=== PATIENT | male | born 1960 | race Caucasian/White ===

== ENCOUNTER 2017-12-19 10:31 | Observation (INO) | payer OTHER, SELFPAY ==
[2017-12-19] VITALS (13 sets, daily range): BP systolic 99–148; BP diastolic 53–104; PULSE 67–92; RESP 14–18; TEMP 36.6–37; O2SAT 93–98; BMI 27.5; BMI 27.0
--- NOTE | 2017-12-19 10:46 | RAD_ITS ---
STUDY: X-RAY CHEST REASON FOR EXAM: Male, 56 years old. Chest pain and pressure TECHNIQUE: Single view of the chest was obtained COMPARISON: November 12, 2016 FINDINGS: No lung consolidation, pleural effusion or pneumothorax. Cardiac size is within normal limits. Osseous structures demonstrate no acute abnormalities. RAD/Chest 1 View (Portable) IMPRESSION: No evidence for focal airspace disease Electronically Signed: Joe Encinas, at 11:17 EST Tel , Service support ,
--- NOTE | 2017-12-19 10:46 | EKG12_ITS ---
Test Reason : CP Blood Pressure : / mmHG Vent. Rate : 081 BPM Atrial Rate : 081 BPM P-R Int : 142 ms QRS Dur : 082 ms QT Int : 364 ms P-R-T Axes : 080 -57 076 degrees QTc Int : 422 ms Normal sinus rhythm Left axis deviation Low voltage QRS (limb leads) Poor R wave progression Abnormal ECG Confirmed by JAZMYN HOYOS, FERNANDO ([id number]), society editor ANGELA BAUMAN ([id number]) on 12/23/2017 2:37:35 PM Referred By: KAREEM Confirmed By:FERNANDO ELDRIDGE MD
--- NOTE | 2017-12-19 11:06 | ED.VISSUMM ---
- ER Visit Summary Date of Service: 12/19/17 Chief Complaint: Chest pain History of Present Illness: The patient is a 56 M with chest pressure intermittently at rest since yesterday, worse last night, especially with lying down, no worse with exertion. Nonpleuritic. It is substernal pressure in the inferior chest. Occasional left arm discomfort. No neck/jaw/back pain. No symptoms of dysrhythmia or lightheadedness although he has felt vertiginous off and on for the past 3 or 4 weeks since he has had an upper respiratory infection, treated with several different antibiotics from urgent care. States he had a chest x-ray a week ago that was negative for pneumonia. He has 2 cardiac stents in the same coronary vessel that were placed a couple years ago. No DVT or PE risk factors or history. He is on aspirin and Plavix and has been compliant. Non-smoker. No cocaine. Self-described anxious. Physical Examination: Mildly hypertensive otherwise vitals are unremarkable. A little anxious but in no acute distress. Chest nontender, lungs clear, heart regular with no murmur or tachycardia. Equal bilateral 2+/4 radial pulses bilaterally. No JVD. Abdomen nontender soft. No calf tenderness or pedal edema. Test Results: EKG shows no acute injury pattern but shows a left axis deviation that is new compared with his old one one year prior, which was done after his stents. Chest x-ray unremarkable. Labs unremarkable and negative troponin. Emergency Department Course and Treatment: Patient was initially given a GI cocktail which did not help his discomfort at all. He was then given a nitroglycerin tablet, this did not help either but give him a headache. He was then given Tylenol and after I discussed with cardiology who recommended admission for further evaluation and treatment, he was given subcutaneous Lovenox for what is very possibly unstable angina, and Tylenol, along with nitroglycerin paste. Discussed with Dr. Jensen for admission. Treatment Plan: Admit PCU Disposition: Admit Impression: Unstable angina History coronary artery disease with prior PCI This note was generated with Singspiel dictation software. It may contain incorrect words, spelling, and punctuation that were not noted in review of the chart prior to signing ED Disposition - Plan for ED Patient: Disposition: Acute Care Hospital [facility] Chief Complaint: Chest Pain Referrals: Sera Ann MD [Primary Care Provider] -
--- NOTE | 2017-12-19 11:09 | ED.DCSUM_ITS ---
- ER Visit Summary Date of Service: 12/19/17 Chief Complaint: Chest pain History of Present Illness: The patient is a 56 M with chest pressure intermittently at rest since yesterday, worse last night, especially with lying down, no worse with exertion. Nonpleuritic. It is substernal pressure in the inferior chest. Occasional left arm discomfort. No neck/jaw/back pain. No symptoms of dysrhythmia or lightheadedness although he has felt vertiginous off and on for the past 3 or 4 weeks since he has had an upper respiratory infection , treated with several different antibiotics from urgent care. States he had a chest x-ray a week ago that was negative for pneumonia. He has 2 cardiac stents in the same coronary vessel that were placed a couple years ago. No DVT or PE risk factors or history. He is on aspirin and Plavix and has been compliant. Non-smoker. No cocaine. Self-described anxious. Physical Examination: Mildly hypertensive otherwise vitals are unremarkable. A little anxious but in no acute distress. Chest nontender, lungs clear, heart regular with no murmur or tachycardia. Equal bilateral 2+/4 radial pulses bilaterally. No JVD. Abdomen nontender soft. No calf tenderness or pedal edema. Test Results: EKG shows no acute injury pattern but shows a left axis deviation that is new compared with his old one one year prior, which was done after his stents. Chest x-ray unremarkable. Labs unremarkable and negative troponin. Emergency Department Course and Treatment: Patient was initially given a GI cocktail which did not help his discomfort at all. He was then given a nitroglycerin tablet, this did not help either but give him a headache. He was then given Tylenol and after I discussed with cardiology who recommended admission for further evaluation and treatment, he was given subcutaneous Lovenox for what is very possibly unstable angina, and Tylenol, along with nitroglycerin paste. Discussed with Dr. Jensen for admission. Treatment Plan: Admit PCU Disposition: Admit Impression: Unstable angina History coronary artery disease with prior PCI This note was generated with Jetaport dictation software. It may contain incorrect words, spelling, and punctuation that were not noted in review of the chart prior to signing ED Disposition - Plan for ED Patient: Disposition: Acute Care Hospital [facility] Chief Complaint: Chest Pain Referrals: Sera Ann MD [Primary Care Provider] -
[2017-12-19 11:12] LABS: Absolute Lymphocyte Count 1.18 X10^3/ul (0.83-4.51); Absolute Neutrophil Count 5.3 X10^3/uL (2.0-7.7); Basophil# 0.03 X10^3/uL; Basophil% 0.4 % (0-1); Eosinophil# 0.05 X10^3/uL; Eosinophils% 0.7 % (0-5); Hematocrit 49.2 % (40-54); Hemoglobin 17.2 g/dl (13.0-16.5); Lymphocyte # 1.18 X10^3/ul (4.0); Lymphocyte % 16.6 % (19-41); Mean Corpuscular Hgb 29.5 pg (27.0-32.0); Mean Corpuscular Volume 84.2 fL (80-94); Mean Platelet Vol. 11.1 fl (6.2-12.0); Monocyte# 0.58 X10^3/uL; Monocyte% 8.2 % (0-10); Neutrophil # 5.26 X10^3/uL (2.7-7.7); Platelet Count 242 K/mm3 (150-450); RBC Distribution Width CV 13.2 % (11.6-14.6); RBC Distribution Width SD 40.3 fl (35.1-43.9); Red Blood Count 5.84 M/mm3 (4.6-6.2); White Blood Count 7.1 K/mm3 (4.4-11.0)
[2017-12-19 11:14] LABS: POSITIVE COUNT NO; POSITIVE DIFFERENTIAL NO; POSITIVE MORPHOLOGY NO
[2017-12-19 11:18] LABS: Anion Gap 8 (5-15); BUN 10 mg/dL (7-18); BUN/Creat Ratio 9.9 RATIO (10-20); Chloride 101 mmol/L (98-107); Creatinine, Serum 1.01 mg/dL (0.70-1.30); EST Glomerular Filtration Rate 81 mL/min (>60); Est Glom Filt Rate - Afr Amer 98 mL/min (>60); Estimated Creatinine Clearance 83.32 ml/min; Glucose 160 mg/dL (74-106); Sodium Level 137 mmol/L (136-145)
[2017-12-19] MEDS: Aspirin 81 MG TAB.CHEW PO (11:20)
[2017-12-19] MEDS: Acetaminophen 500 MG Tablet 1000 MG PO (13:14)
[2017-12-19] MEDS: Enoxaparin 100 MG/ML Syringe 90 MG SC ×2 (13:15→22:47)
[2017-12-19] MEDS: Nitroglycerin Oint 1 INCH PACKET TRANSDERM. (13:15)
--- NOTE | 2017-12-19 14:23 | PCM.HP.STD ---
Problem List (1) Unstable angina Status: Acute (2) Status post insertion of drug-eluting stent into left anterior descending artery for coronary artery disease Status: Chronic (3) Coronary artery disease Status: Chronic (4) Prediabetes Status: Chronic (5) Hypertension Status: Chronic (6) Dyslipidemia Status: Chronic History of Present Illness Date of Admission: 12/19/17 Chief Complaint: Chest pain since yesterday The patient is a 56 year old M with history of coronary artery status post 2 stents in LAD around in [facility] by Dr. Nagel came to ER with midsternal chest pain since yesterday. Patient described chest pain started at rest, constant but with waxing and waning pressure-like with mild dizziness and mild shortness of breath. Patient went to sleep yesterday and woke up in the morning again her chest pain. Patient further said he has mild dyspnea on exertion on climbing a stair for last 3-4 months. Patient has mild bronchitis symptoms with cough about 3-4 weeks ago and took Z-Willy and doxycycline the cough has almost resolved for last 4 days. In ER, EKG was done which shows left axis deviation, normal sinus rhythm at 81 bpm which is new finding as compared to last EKG on November 2016 which showed normal sinus rhythm with normal axis. First troponin is negative. Chest x-ray reported no focal airspace disease. Insurance Account Executive Dr. Bae notified by ER physician Dr. Coleman only. First troponin negative. He also got 1 dose of Lovenox 1 mg/kg body weight. He is already on aspirin Plavix and a statin. [] Past Medical History Past Medical History (Chronic Problems): Chronic Problems Status post insertion of drug-eluting stent into left anterior descending artery for coronary artery disease (Chronic) Coronary artery disease (Chronic) Prediabetes (Chronic) Hypertension (Chronic) Dyslipidemia (Chronic) Allergies amoxicillin [Amoxicillin] Allergy (Verified 12/19/17 10:32) Hives tetracycline [Tetracycline] Allergy (Verified 12/19/17 10:32) Unknown Home Medications: Ambulatory Orders Medication Instructions Recorded Carvedilol [Coreg] 3.125 mg PO BID 11/15/13 Nitroglycerin [Nitrostat] 0.4 mg SUBLINGUAL Q5M PRN 11/15/13 Omeprazole [Prilosec] 20 mg PO DAILY 11/15/13 Aspirin [Aspirin, Baby] 81 mg PO DAILY@0800 #0 tab.chew 12/13/14 Atorvastatin Calcium [Lipitor] 80 mg PO QHS #0 tablet 12/13/14 Clopidogrel Bisulfate [Plavix] 75 mg PO DAILY #0 tablet 12/13/14 Multivitamin [Daily Multiple 1 each PO DAILY 12/19/17 Vitamin] Smoking Status: Never smoker - *Family History Paternal History Items: No pertinent history Review of Systems Constitutional: Denies: Chills, Fever, Weight Change HEENT: Denies: Head Aches, Sinus Congestion, Sinus Drainage Cardiovascular: Reports: Chest Pain. Denies: Palpitations Respiratory: Reports: Shortness of breath upon exertion. Denies: Cough, Shortness of breath at rest, Sputum production Gastrointestinal: Denies: Abdominal Pain, Nausea, Vomiting Genitourinary: Denies: Dysuria Musculoskeletal: Denies: Joint Pain, Joint Tenderness Skin: Denies: Rash, Wounds Neurological: Denies: Numbness, Tingling, Focal weakness Psychiatric: Denies: Anxiety, Depression, Homicidal Ideations, Suicidal Ideations Hematologic/ Lymphatic: Denies: Easy Bruising, Easy Bleeding VTE Information - Inpt Only VTE Present on Admission: No VTE Mechan Device Prophylaxis: SCD's VTE Pharm Prophylaxis ordered?: Yes Patient Problems: Active and Suspected Problems Unstable angina (Acute) - Physical Exam General: Alert, Oriented x3, Cooperative HEENT: Atraumatic, PERRLA, EOMI, Normocephalic Neck: Supple, No JVD, Negative Carotid Bruits Lungs: Clear to auscultation, Normal air movement, No rhonchi, No wheeze, No rales Cardiovascular: Regular rate, Regular Rhythm, Normal S1, Normal S2, No murmurs Abdomen: Bowel Sounds Present, Soft, Non Tender, Non-Distended Extremities: No edema, Capillary Refill Less than 3 Seconds Skin: No rashes, No breakdown Musculoskeletal: No Tenderness to Palpation of Joints or Extremities, Arthritic Changes Neurological: Cranial nerves II-XII grossly intact, Neuro grossly intact Psych/Mental Status: Normal Affect, Appropriate Vital Signs Temp Pulse Resp BP Pulse Ox 97.8 F 67 16 122/79 H 94 12/19/17 10:33 12/19/17 13:36 12/19/17 13:36 12/19/17 13:36 12/19/17 13:36 Oxygen Delivery Method Room Air Assessment/Plan Active and Suspected Problems Unstable angina (Acute) The patient is a 56 year old M with history of coronary artery status post 2 stents in LAD around in [facility] by Dr. Nagel came to ER with midsternal chest pain since yesterday. Patient described chest pain started at rest, constant but with waxing and waning pressure-like with mild dizziness and mild shortness of breath. Patient went to sleep yesterday and woke up in the morning again her chest pain. Patient further said he has mild dyspnea on exertion on climbing a stair for last 3-4 months. Patient has mild bronchitis symptoms with cough about 3-4 weeks ago and took Z-Willy and doxycycline the cough has almost resolved for last 4 days. In ER, EKG was done which shows left axis deviation, normal sinus rhythm at 81 bpm which is new finding as compared to last EKG on November 2016 which showed normal sinus rhythm with normal axis. First troponin is negative. Chest x-ray reported no focal airspace disease. Insurance Account Executive Dr. Bae notified by ER physician Dr. Coleman only. First troponin negative. He also got 1 dose of Lovenox 1 mg/kg body weight. He is already on aspirin Plavix and a statin. 1. Atypical chest pain most likely unstable angina with history of coronary arteries 2 stents, but possibility of pleuritis in light of recent subacute bronchitis: The patient is being admitted on PCU floor. On ACS protocol with serial cardiac enzymes, aspirin, Plavix Lovenox 1 mg/kg body weight, beta-noman, MARTI inhibitor and statin. Patient started on Isordil. Patient had cardiac cath in October [address] parker and was reported as normal angiographic findings along with previous sustained patent with preserved EF 60%. There is no significant change from the previous cardiac cath of December 2014. Discussed with Dr. Bae. 2. The artery status post 2 stents in LAD: 3. Prediabetes: Patient oral hypoglycemic nasal movement states he has borderline diabetes but not on oral hypoglycemic medication. A1c ordered for tomorrow. On 1800 ADA diet. 4. Hypertension: Blood pressure is reasonably controlled. 5. Dyslipidemia: On atorvastatin DVT prophylaxis: On Lovenox 1 mg/KG body weight. Clinical Impression(s) from Imaging Studies Chest X-Ray 12/19/17 10:46 IMPRESSION: No evidence for focal airspace disease Electronically Signed: Joe Encinas, at 11:17 EST Tel , Service support , Laboratory Results 12/19/17 10:43: WBC 7.1, RBC 5.84, Hgb 17.2 H, Hct 49.2, MCV 84.2, MCH 29.5, MCHC 35.0, RDW 13.2, RDW Differential 40.3, Plt Count 242, MPV 11.1, Immature Gran % (Auto) 0.100, Neut % (Auto) 74.0 H, Lymph % (Auto) 16.6 L, [place] % (Auto) 8.2, Eos % (Auto) 0.7, Baso % (Auto) 0.4, Absolute Neuts (auto) 5.3, Absolute Lymphs (auto) 1.18, Total Counted Not Reportable 12/19/17 10:43: Sodium 137, Potassium 4.0, Chloride 101, Carbon Dioxide 28.0, Anion Gap 8, BUN 10, Creatinine 1.01, Estim Creat Clear Calc 83.32, Est GFR (MDRD) Af Amer 98, Est GFR (MDRD) Non-Af 81, BUN/Creatinine Ratio 9.9 L, Glucose 160 H, Calcium 9.0, Troponin I < 0.02 Code Visit Inpatient E&M: 34689 Init Hosp L3
--- NOTE | 2017-12-19 14:31 | HP.PCM_ITS ---
Problem List (1) Unstable angina Status: Acute (2) Status post insertion of drug-eluting stent into left anterior descending artery for coronary artery disease Status: Chronic (3) Coronary artery disease Status: Chronic (4) Prediabetes Status: Chronic (5) Hypertension Status: Chronic (6) Dyslipidemia Status: Chronic History of Present Illness Date of Admission: 12/19/17 Chief Complaint: Chest pain since yesterday The patient is a 56 year old M with history of coronary artery status post 2 stents in LAD around in [facility] by Dr. Nagel came to ER with midsternal chest pain since yesterday. Patient described chest pain started at rest, constant but with waxing and waning pressure-like with mild dizziness and mild shortness of breath. Patient went to sleep yesterday and woke up in the morning again her chest pain. Patient further said he has mild dyspnea on exertion on climbing a stair for last 3-4 months. Patient has mild bronchitis symptoms with cough about 3-4 weeks ago and took Z- Willy and doxycycline the cough has almost resolved for last 4 days. In ER, EKG was done which shows left axis deviation, normal sinus rhythm at 81 bpm which is new finding as compared to last EKG on November 2016 which showed normal sinus rhythm with normal axis. First troponin is negative. Chest x-ray reported no focal airspace disease. Manager Area Dr. Bae notified by ER physician Dr. Coleman only. First troponin negative. He also got 1 dose of Lovenox 1 mg/kg body weight. He is already on aspirin Plavix and a statin. [] Past Medical History Past Medical History (Chronic Problems): Chronic Problems Status post insertion of drug-eluting stent into left anterior descending artery for coronary artery disease (Chronic) Coronary artery disease (Chronic) Prediabetes (Chronic) Hypertension (Chronic) Dyslipidemia (Chronic) Allergies amoxicillin [Amoxicillin] Allergy (Verified 12/19/17 10:32) Hives tetracycline [Tetracycline] Allergy (Verified 12/19/17 10:32) Unknown Home Medications: Ambulatory Orders Medication Instructions Recorded Carvedilol [Coreg] 3.125 mg PO BID 11/15/13 Nitroglycerin [Nitrostat] 0.4 mg SUBLINGUAL Q5M PRN 11/15/13 Omeprazole [Prilosec] 20 mg PO DAILY 11/15/13 Aspirin [Aspirin, Baby] 81 mg PO DAILY@0800 #0 tab.chew 12/13/14 Atorvastatin Calcium [Lipitor] 80 mg PO QHS #0 tablet 12/13/14 Clopidogrel Bisulfate [Plavix] 75 mg PO DAILY #0 tablet 12/13/14 Multivitamin [Daily Multiple 1 each PO DAILY 12/19/17 Vitamin] Smoking Status: Never smoker - *Family History Paternal History Items: No pertinent history Review of Systems Constitutional: Denies: Chills, Fever, Weight Change HEENT: Denies: Head Aches, Sinus Congestion, Sinus Drainage Cardiovascular: Reports: Chest Pain. Denies: Palpitations Respiratory: Reports: Shortness of breath upon exertion. Denies: Cough, Shortness of breath at rest, Sputum production Gastrointestinal: Denies: Abdominal Pain, Nausea, Vomiting Genitourinary: Denies: Dysuria Musculoskeletal: Denies: Joint Pain, Joint Tenderness Skin: Denies: Rash, Wounds Neurological: Denies: Numbness, Tingling, Focal weakness Psychiatric: Denies: Anxiety, Depression, Homicidal Ideations, Suicidal Ideations Hematologic/ Lymphatic: Denies: Easy Bruising, Easy Bleeding VTE Information - Inpt Only VTE Present on Admission: No VTE Mechan Device Prophylaxis: SCD's VTE Pharm Prophylaxis ordered?: Yes Patient Problems: Active and Suspected Problems Unstable angina (Acute) - Physical Exam General: Alert, Oriented x3, Cooperative HEENT: Atraumatic, PERRLA, EOMI, Normocephalic Neck: Supple, No JVD, Negative Carotid Bruits Lungs: Clear to auscultation, Normal air movement, No rhonchi, No wheeze, No rales Cardiovascular: Regular rate, Regular Rhythm, Normal S1, Normal S2, No murmurs Abdomen: Bowel Sounds Present, Soft, Non Tender, Non-Distended Extremities: No edema, Capillary Refill Less than 3 Seconds Skin: No rashes, No breakdown Musculoskeletal: No Tenderness to Palpation of Joints or Extremities, Arthritic Changes Neurological: Cranial nerves II-XII grossly intact, Neuro grossly intact Psych/Mental Status: Normal Affect, Appropriate Vital Signs Temp Pulse Resp BP Pulse Ox 97.8 F 67 16 122/79 H 94 12/19/17 10:33 12/19/17 13:36 12/19/17 13:36 12/19/17 13:36 12/19/17 13:36 Oxygen Delivery Method Room Air Assessment/Plan Active and Suspected Problems Unstable angina (Acute) The patient is a 56 year old M with history of coronary artery status post 2 stents in LAD around in [facility] by Dr. aNgel came to ER with midsternal chest pain since yesterday. Patient described chest pain started at rest, constant but with waxing and waning pressure-like with mild dizziness and mild shortness of breath. Patient went to sleep yesterday and woke up in the morning again her chest pain. Patient further said he has mild dyspnea on exertion on climbing a stair for last 3-4 months. Patient has mild bronchitis symptoms with cough about 3-4 weeks ago and took Z- Willy and doxycycline the cough has almost resolved for last 4 days. In ER, EKG was done which shows left axis deviation, normal sinus rhythm at 81 bpm which is new finding as compared to last EKG on November 2016 which showed normal sinus rhythm with normal axis. First troponin is negative. Chest x-ray reported no focal airspace disease. Manager Area Dr. Bae notified by ER physician Dr. Coleman only. First troponin negative. He also got 1 dose of Lovenox 1 mg/kg body weight. He is already on aspirin Plavix and a statin. 1. Atypical chest pain most likely unstable angina with history of coronary arteries 2 stents, but possibility of pleuritis in light of recent subacute bronchitis: The patient is being admitted on PCU floor. On ACS protocol with serial cardiac enzymes, aspirin, Plavix Lovenox 1 mg/kg body weight, beta- noman, MARTI inhibitor and statin. Patient started on Isordil. Patient had cardiac cath in October [address] parker and was reported as normal angiographic findings along with previous sustained patent with preserved EF 60% . There is no significant change from the previous cardiac cath of December 2014. Discussed with Dr. Bae. 2. The artery status post 2 stents in LAD: 3. Prediabetes: Patient oral hypoglycemic nasal movement states he has borderline diabetes but not on oral hypoglycemic medication. A1c ordered for tomorrow. On 1800 ADA diet. 4. Hypertension: Blood pressure is reasonably controlled. 5. Dyslipidemia: On atorvastatin DVT prophylaxis: On Lovenox 1 mg/KG body weight. Clinical Impression(s) from Imaging Studies Chest X-Ray 12/19/17 10:46 IMPRESSION: No evidence for focal airspace disease Electronically Signed: Joe Encinas, at 11:17 EST Tel , Service support , Laboratory Results 12/19/17 10:43: WBC 7.1, RBC 5.84, Hgb 17.2 H, Hct 49.2, MCV 84.2, MCH 29.5, MCHC 35.0, RDW 13.2, RDW Differential 40.3, Plt Count 242, MPV 11.1, Immature Gran % (Auto) 0.100, Neut % (Auto) 74.0 H, Lymph % (Auto) 16.6 L, [place] % (Auto) 8.2, Eos % (Auto) 0.7, Baso % (Auto) 0.4, Absolute Neuts (auto) 5.3, Absolute Lymphs (auto) 1.18, Total Counted Not Reportable 12/19/17 10:43: Sodium 137, Potassium 4.0, Chloride 101, Carbon Dioxide 28.0, Anion Gap 8, BUN 10, Creatinine 1.01, Estim Creat Clear Calc 83.32, Est GFR ( MDRD) Af Amer 98, Est GFR (MDRD) Non-Af 81, BUN/Creatinine Ratio 9.9 L, Glucose 160 H, Calcium 9.0, Troponin I < 0.02 Code Visit Inpatient E&M: 52094 Init Hosp L3
[2017-12-19 14:50] LABS: Magnesium 2.2 mg/dL (1.6-2.6)
[2017-12-19] MEDS: Lisinopril 10 MG Tablet PO (15:32)
[2017-12-19] MEDS: Isosorbide DN 10 MG Tablet 5 MG PO (15:32)
[2017-12-19 15:54] LABS: BNP,B-Type NATRIURETIC PEPTIDE 7.3 pg/mL (0-100)
--- NOTE | 2017-12-19 16:17 | EKG12_ITS ---
Test Reason : Blood Pressure : / mmHG Vent. Rate : 080 BPM Atrial Rate : 080 BPM P-R Int : 144 ms QRS Dur : 084 ms QT Int : 376 ms P-R-T Axes : 060 -25 074 degrees QTc Int : 433 ms Normal sinus rhythm Inferior infarct , age undetermined Abnormal ECG When compared with ECG of 19-DEC-2017 10:34, MANUAL COMPARISON REQUIRED, DATA IS UNCONFIRMED Confirmed by PIEDAD LOWRY ([id number]), editorial writer ANGELA BAUMAN ([id number]) on 12/24/2017 3:06:42 PM Referred By: PRATEEK Confirmed By:PIEDAD LOWRY
[2017-12-19] MEDS: Acetaminophen 325 MG Tablet 650 MG PO (19:43)
[2017-12-19] MEDS: 0.9% NaCl Peripheral Flush Adult/Peds IV (21:10)
[2017-12-19] MEDS: Mag Hydrox/Al Hydrox/Simeth 30 ML UDC PO (21:10)
[2017-12-19] MEDS: Atorvastatin Calcium 80 MG Tablet PO (21:13)
[2017-12-20 03:00] VITALS: PULSE 64
[2017-12-20 04:45] VITALS: BP 103/64; PULSE 67; RESP 16; TEMP 36.7; O2SAT 95
[2017-12-20] MEDS: Acetaminophen 325 MG Tablet 650 MG PO (04:46)
[2017-12-20 06:54] LABS: Cholesterol 88 mg/dL (200); High Density Lipoprotein 50 mg/dL; Thyroid Stim Hormone (TSH) 0.16 uIU/mL (0.358-3.74); Triglycerides 88 mg/dL; Very Low Density Lipoprotein 18 mg/dL (5-40)
[2017-12-20 07:02] VITALS: PULSE 77
[2017-12-20 07:30] LABS: Hemoglobin A1c 5.9 % (4.2-6.3)
[2017-12-20 08:55] LABS: T4 Free Direct 1.21 ng/dL (0.76-1.46)
[2017-12-20] MEDS: Pantoprazole Sodium 20 MG Tablet PO (09:06)
[2017-12-20] MEDS: Aspirin 81 MG TAB.CHEW PO (09:06)
[2017-12-20] MEDS: Clopidogrel Bisulfate 75 MG Tablet PO (09:06)
[2017-12-20] MEDS: Multivitamins,Therapeutic Tablet 1 TABLET PO (09:06)
[2017-12-20] MEDS: Carvedilol 3.125 MG TABLET PO (09:07)
[2017-12-20] MEDS: 0.9% NaCl Peripheral Flush Adult/Peds IV (09:11)
[2017-12-20 09:15] VITALS: BP 128/77; PULSE 74; RESP 16; TEMP 36.6; O2SAT 98
[2017-12-20 10:46] VITALS: PULSE 83
--- NOTE | 2017-12-20 11:43 | PCM.DC.SUM ---
Discharge Date and Diagnosis - Problem List Patient Problems: Active and Suspected Problems Unstable angina (Acute) Date of Admission: 12/19/17 - Primary Discharge Diagnosis Active and Suspected Problems Unstable angina (Acute) - Secondary Discharge Diagnosis Chronic Problems Status post insertion of drug-eluting stent into left anterior descending artery for coronary artery disease (Chronic) Coronary artery disease (Chronic) Prediabetes (Chronic) Hypertension (Chronic) Dyslipidemia (Chronic) Hospital Course and Treatment Summary of Care Provided: The patient is a 56 year old M [] Home Medications: Medications to take at Discharge Carvedilol [Coreg] 3.125 mg PO BID 11/15/13 Nitroglycerin [Nitrostat] 0.4 mg SUBLINGUAL Q5M PRN 11/15/13 Omeprazole [Prilosec] 20 mg PO DAILY 11/15/13 Aspirin [Aspirin, Baby] 81 mg PO DAILY@0800 #0 tab.chew 12/13/14 Atorvastatin Calcium [Lipitor] 80 mg PO QHS #0 tablet 12/13/14 Clopidogrel Bisulfate [Plavix] 75 mg PO DAILY #0 tablet 12/13/14 Multivitamin [Daily Multiple Vitamin] 1 each PO DAILY 12/19/17 Isosorbide Mononitrate [Isosorbide Mononitrate ER] 30 mg PO DAILY #30 tab.er.24h 12/20/17 Lisinopril [Prinivil] 5 mg PO DAILY #30 tablet 12/20/17 Following Prescrptions Were Given to Patient: Isosorbide Mononitrate [Isosorbide Mononitrate ER] 30 mg PO DAILY #30 tab.er.24h Lisinopril [Prinivil] 5 mg PO DAILY #30 tablet Primary Care Physician: Sera Ann MD [Primary Care Provider] -
--- NOTE | 2017-12-20 11:46 | DCINST_ITS ---
- Discharge Diagnoses Current Active Problems: Current Active and Chronic Problems Unstable angina (Acute) Status post insertion of drug-eluting stent into left anterior descending artery for coronary artery disease (Chronic) Coronary artery disease (Chronic) Prediabetes (Chronic) Hypertension (Chronic) Dyslipidemia (Chronic) You will use the following diet at home:: Calorie/Carbohydrate Controlled ( specify 1200, 1400, etc) - 1800 ADA diet, Cardiac Discharge Activity: May not drive while taking narcotic pain medications. Allergies/Adverse Reactions: Allergies amoxicillin [Amoxicillin] Allergy (Verified 12/19/17 10:32) Hives tetracycline [Tetracycline] Allergy (Verified 12/19/17 10:32) Unknown Medications to take at Discharge Carvedilol [Coreg (Beta Fredy)] 3.125 mg PO BID 11/15/13 Nitroglycerin [Nitrostat] 0.4 mg SUBLINGUAL Q5M PRN 11/15/13 Omeprazole [Prilosec] 20 mg PO DAILY 11/15/13 Aspirin [Aspirin, Baby] 81 mg PO DAILY@0800 #0 tab.chew 12/13/14 Atorvastatin Calcium [Lipitor] 80 mg PO QHS #0 tablet 12/13/14 Clopidogrel Bisulfate [Plavix] 75 mg PO DAILY #0 tablet 12/13/14 Multivitamin [Daily Multiple Vitamin] 1 each PO DAILY 12/19/17 Isosorbide Mononitrate [Isosorbide Mononitrate ER] 30 mg PO DAILY #30 tab.er.24h 12/20/17 The following prescriptions were given: Isosorbide Mononitrate [Isosorbide Mononitrate ER] 30 mg PO DAILY #30 tab.er.24h Primary Care Physician: Sera Ann MD [Primary Care Provider] - Please follow up with your Primary Care Physician in: in 2 weeks Please Follow Up With: Damon Nagel MD When: in 2-3 weeks with outpatient Lexiscan nuclear stres test
--- NOTE | 2017-12-20 11:46 | PCM.DC.SUM ---
Discharge Date and Diagnosis Date of Admission: 12/19/17 Date of Discharge: 12/20/17 - Primary Discharge Diagnosis Active and Suspected Problems Atypical chest pain with history of coronary artery disease s/p 2 stents, but most probably GERD: Acute coronary syndrome ruled out. - Secondary Discharge Diagnosis Chronic Problems Status post insertion of drug-eluting stent into left anterior descending artery for coronary artery disease (Chronic) Coronary artery disease (Chronic) Prediabetes (Chronic) Hypertension (Chronic) Dyslipidemia (Chronic) Hospital Course and Treatment Summary of Care Provided: The patient is a 56 year old M with history of coronary artery status post 2 stents in LAD around in [facility] by Dr. Nagel came to ER with midsternal chest pain for about 2 days prior to arrival in ER. Patient described chest pain started at rest, constant but with waxing and waning pressure-like, worse since on laying down with mild dizziness and mild shortness of breath. Patient went to sleep yesterday and woke up in the morning again her chest pain. Patient further said he has mild dyspnea on exertion on climbing a stair for last 3-4 months. Patient has mild bronchitis symptoms with cough about 3-4 weeks ago and took Z-Willy and doxycycline the cough has almost resolved for last 4 days. In ER, EKG was done which shows left axis deviation, normal sinus rhythm at 81 bpm which is new finding as compared to last EKG on November 2016 which showed normal sinus rhythm with normal axis. First troponin is negative. Chest x-ray reported no focal airspace disease. Conference Planner Dr. Bae notified by ER physician Dr. Coleman only. First troponin negative. He also got 1 dose of Lovenox 1 mg/kg body weight. He is already on aspirin Plavix and a statin. 1. Atypical chest pain with history of coronary arteries 2 stents, but most probably GERD: Acute coronary syndrome ruled out. The patient is being admitted on PCU floor. The patient was started on ACS protocol with serial cardiac enzymes, aspirin, Plavix Lovenox 1 mg/kg body weight, beta-fredy, MARTI inhibitor and statin. Patient started on Isordil. Patient had cardiac cath in October [address] parker and was reported as normal angiographic findings along with previous sustained patent with preserved EF 60%. There is no significant change from the previous cardiac cath of December 2014. Discussed with Dr. Bae. Had serial troponin enzymes negative. EKG does not show significant change. It seems patient most likely has GERD even though seeing his significant cardiac history, he was recommended outpatient Cardiolite nuclear stress test early next week. Patient understands and agrees. 2. Coronary artery status post 2 stents in LAD: As mentioned above 3. Prediabetes: Patient oral hypoglycemic nasal movement states he has borderline diabetes but not on oral hypoglycemic medication. A1c 5.9 history of prediabetes. On 1800 ADA diet. 4. Hypertension: Blood pressure is reasonably controlled. 5. Dyslipidemia: On atorvastatin DVT prophylaxis: On Lovenox 1 mg/KG body weight. Discharge medication reconciliation done. Follow-up instructions completed. Patient was given a prescription for isosorbide mononitrate 30 mg daily. Rest of the medications continued patient was advised to follow-up his basic acoustic analyst Dr. Parker. Discharge plan discussed with the patient and his and they affirmed understanding. As mentioned above, recommended outpatient Cardiolite nuclear stress test. Discharge Activity: May not drive while taking narcotic pain medications. Home Medications: Medications to take at Discharge Carvedilol [Coreg (Beta Fredy)] 3.125 mg PO BID 11/15/13 Nitroglycerin [Nitrostat] 0.4 mg SUBLINGUAL Q5M PRN 11/15/13 Omeprazole [Prilosec] 20 mg PO DAILY 11/15/13 Aspirin [Aspirin, Baby] 81 mg PO DAILY@0800 #0 tab.chew 12/13/14 Atorvastatin Calcium [Lipitor] 80 mg PO QHS #0 tablet 12/13/14 Clopidogrel Bisulfate [Plavix] 75 mg PO DAILY #0 tablet 12/13/14 Multivitamin [Daily Multiple Vitamin] 1 each PO DAILY 12/19/17 Isosorbide Mononitrate [Isosorbide Mononitrate ER] 30 mg PO DAILY #30 tab.er.24h 12/20/17 Following Prescrptions Were Given to Patient: Isosorbide Mononitrate [Isosorbide Mononitrate ER] 30 mg PO DAILY #30 tab.er.24h Primary Care Physician: Sera Ann MD [Primary Care Provider] - Please follow up with your Primary Care Physician in: in 2 weeks Please Follow Up With: Damon Nagel MD When: in 2-3 weeks with outpatient Lexiscan nuclear stres test Meaningful Use Info Meaningful Use Diagnoses (Choose all that apply): None applicable Code Visit OBSV E&M: 63488 Observation care discharge
--- NOTE | 2017-12-20 12:04 | PCM.CONS.C ---
Problem List (1) Chest pain Status: Acute Reason for Consult Date of Consultation: 12/20/17 History of Present Illness: The patient is a 56 year old M with past medical history significant for coronary artery disease status post percutaneous intervention to his left anterior descending artery a few years back. He also has history of hypertension and dyslipidemia. According to the patient, he has had flulike symptoms for couple of weeks. For the last 1 week, he has been having anterior chest pressure/fullness. It is intermittent. He describes it as being worse while he lays down. No exacerbation or precipitation with activity. Accompanied with a bitter taste in mouth. Relieved with Mylanta. Patient distinctly differentiates it from his usual cardiac pain. He denies any associated shortness of breath or diaphoresis. No nausea or vomiting. Had some of the same symptoms last night which was relieved with Mylanta. [] Past Medical History Allergies/Adverse Reactions: Allergies amoxicillin [Amoxicillin] Allergy (Verified 12/19/17 10:32) Hives tetracycline [Tetracycline] Allergy (Verified 12/19/17 10:32) Unknown Home Medications: Ambulatory Orders Medication Instructions Recorded Carvedilol [Coreg (Beta Fredy)] 3.125 mg PO BID 11/15/13 Nitroglycerin [Nitrostat] 0.4 mg SUBLINGUAL Q5M PRN 11/15/13 Omeprazole [Prilosec] 20 mg PO DAILY 11/15/13 Aspirin [Aspirin, Baby] 81 mg PO DAILY@0800 #0 tab.chew 12/13/14 Atorvastatin Calcium [Lipitor] 80 mg PO QHS #0 tablet 12/13/14 Clopidogrel Bisulfate [Plavix] 75 mg PO DAILY #0 tablet 12/13/14 Multivitamin [Daily Multiple 1 each PO DAILY 12/19/17 Vitamin] Isosorbide Mononitrate [Isosorbide 30 mg PO DAILY #30 tab.er.24h 12/20/17 Mononitrate ER] Lisinopril [Prinivil] 5 mg PO DAILY #30 tab 12/20/17 Past Medical History (Chronic Problems): Chronic Problems Status post insertion of drug-eluting stent into left anterior descending artery for coronary artery disease (Chronic) Coronary artery disease (Chronic) Prediabetes (Chronic) Hypertension (Chronic) Dyslipidemia (Chronic) - *Family History Paternal History Items: No pertinent history Smoking Status: Former smoker Review of Systems - Review of Systems General: Reports: Normal Appetite. Denies: Fever, Fatigue, Chills, Anorexia HEENT: Denies: Vision Change, Hearing Changes Cardiovascular: Reports: Chest Pressure Gastrointestinal: Reports: Dyspepsia. Denies: Abdominal Discomfort, Jaundice Muscoloskeletal: Denies: Myalgias Skin: Denies: Jaundice Neurological: Denies: History of TIA, History of CVA Psychiatric: Denies: Depression Endocrine: Denies: Unexplained Weight Loss Hematologic/ Lymphatic: Denies: Easy Brusing, Easy Bleeding Subjectve: Comfortable. No apparent distress. Objective: Vital Signs Temp Pulse Resp BP Pulse Ox 98 F 83 16 128/77 H 98 12/20/17 09:15 12/20/17 10:46 12/20/17 09:15 12/20/17 09:15 12/20/17 09:15 Oxygen Delivery Method Room Air Weight: 85.5 kg Body Mass Index (BMI) 27.0 Intake and Output for Last 24 Hours 12/18/17 12/19/17 12/20/17 23:59 23:59 23:59 Intake Total 700 / 700 1200 / 1200 Balance 700 / 700 1200 / 1200 General: Healthy Appearing, Awake, Alert, Oriented x 3, No Acute Distress HEENT: Atraumatic, Normocephalic Oral: Moist Mucosa Neck: Supple Lungs: Clear to auscultation Cardiovascular: Regular Rhythm, Normal S1, Normal S2 Vascular: No Carotid Bruits Abdomen: Bowel Sounds Present, Soft, Non Tender Extremities: No edema Neurological: No Focal Motor or Sensory Deficit Psych/Mental Status: Appropriate 12/19/17 14:55: Tropo EKG shows normal sinus rhythm. Ischemic changes are noted. Tish I < 0.02 12/19/17 18:20: Troponin I < 0.02 12/20/17 00:40: Troponin I < 0.02 12/20/17 05:50: Triglycerides 88, Cholesterol 88, LDL Cholesterol 20, VLDL Cholesterol 18, HDL Cholesterol 50 12/20/17 05:50: Hemoglobin A1c 5.9 Rhythm: Normal sinus rhythm. EKG: Normal sinus rhythm. No ischemic changes are noted. ECHO: Stress Test: Cardiac Cath: PCI: CT Surgery: Holter monitor: EPS: PPM: CXR: Chest CT Scan: Assessment/Plan 1. Chest pain/pressure. Precipitated with lying down. Accompanied with bitter taste in mouth. History of gastroesophageal reflux disease. Patient's symptoms are relieved with Mylanta. Doubt cardiac 2. History of coronary artery disease. Even though the patient's symptoms are atypical and more suggestive of GERD, will recommend checking the stress Cardiolite on the patient. Offered to do that as inpatient. However patient prefers to go home and come back and have the test done as outpatient. She was counseled that if his symptoms recur or are exacerbated, then to seek help. Stands and agrees 3. History of gastroesophageal reflux disease 4. Hypertension 5. Dyslipidemia Will ambulate patient. If he does not have any symptoms, may discharge home. Recommend stress Cardiolite as outpatient
--- NOTE | 2017-12-20 12:08 | NURSING ---
DR SANTIZO IN ROOM STATES OKAY FOR PATIENT TO BE DISCHARGED AND COME BACK OUTPATIENT FOR STRESS TEST. INSTRUCTED PATIENT TO COME BACK IF HAS ANY OTHER SYMPTOMS.
--- NOTE | 2017-12-20 13:05 | NURSING ---
PATIENT AMBULATED IN HALLWAY, DENIES ANY SOB OR CHEST PAIN.
== END 2017-12-20 13:22 | disposition home or self-care (01) ==
LOC: ED 13:21 → PCU 14:09
PROVIDERS: Admitting Provider Internal Medicine; Emergency Provider Emergency Medicine; Family Provider Internal Medicine; PCP Internal Medicine; Visit Provider Internal Medicine
DX: R07.89 Other chest pain (principal); I25.10 Atherosclerotic heart disease of native coronary artery without angina pectoris; E78.5 Hyperlipidemia, unspecified; I10 Essential (primary) hypertension; R73.03 Prediabetes; R42 Dizziness and giddiness; K21.9 Gastro-esophageal reflux disease without esophagitis; R06.02 Shortness of breath; Z95.5 Presence of coronary angioplasty implant and graft; Z79.02 Long term (current) use of antithrombotics/antiplatelets; Z79.899 Other long term (current) drug therapy; Z79.82 Long term (current) use of aspirin; Z87.891 Personal history of nicotine dependence
CPT/HCPCS: 36415; 71045; 80048; 80061; 83036; 83735; 83880; 84439; 84443; 84484; 85025; 93005; 96372; 99218; 99285; A4216; G0378

== ENCOUNTER → 2017-12-29 06:51 | Outpatient (CLI) | payer OTHER, SELFPAY ==
--- NOTE | 2017-12-29 17:31 | STRESSREP ---
Stress Test Report Exercise myocardial perfusion stress test. 57-year-old man with a history of chest pressure. Stress protocol: Resting EKG demonstrates sinus rhythm with a rate of 63 bpm. Resting blood pressure is 122/96 mmHg. The patient exercised according to the regular Rafat protocol for total duration of 10 minutes and 45 seconds completing 1 minute and 45 seconds into stage IV of the Rafat protocol. The maximum heart rate attained was 153 bpm which was 94% of maximum predicted heart rate the maximum workload was 12.7 metabolic equivalents. At rest there were no ST or T-wave changes noted suggest ischemia peak exercise upsloping ST changes only were noted really no meet the criteria for ischemia occasional premature ventricular complexes were noted no clinical angina was noted the test was terminated due to leg fatigue and attainment of target heart rate. The resting blood pressure is 122/96 with a peak blood pressure 168/92 rate pressure product was 21,000. Myocardial perfusion protocol. 11.8 mCi of technetium 99m sestamibi was injected at rest the patient exercised according to the Rafat protocol for 10 minutes and 45 seconds attaining 94% of maximum predicted heart rate. At peak exercise 32.1 mCi of technetium 99m sestamibi was injected. Stress images were obtained stress and rest images were reconstructed and compared in the short axis vertical long and horizontal long axis. Gated images were also obtained Perfusion SPECT analysis: Review of the stress images demonstrate normal uptake of tracer noted in all areas of the myocardium. The resting images similarly demonstrate normal uptake of tracer noted in all areas of the myocardium. No areas of reversibility are noted suggest ischemia and no previous infarct is noted. Gated SPECT analysis. Gated ejection fraction is 63%. Conclusion: Normal exercise myocardial perfusion stress test at high workload. Preserved ejection fraction. Excellent functional aerobic capacity.
== END ==
PROVIDERS: Family Provider Internal Medicine; PCP Internal Medicine; Visit Provider Internal Medicine
DX: R07.2 Precordial pain (principal)
CPT/HCPCS: 78452; 93017; A9500; A4216; J2785

== ENCOUNTER 2018-06-30 11:08 | Emergency (ER) | payer OTHER, SELFPAY ==
[2018-06-30 11:09] VITALS: BP 142/103; PULSE 74; RESP 18; TEMP 37; O2SAT 98; BMI 26.2
--- NOTE | 2018-06-30 11:27 | ED.VISSUMM ---
- ER Visit Summary Date of Service: 06/30/18 Chief Complaint: Chest pain History of Present Illness: The patient is a 57 M CAD, prior HI with 2 cardiac stents and most recent from 2013. Patient is on Plavix. He states he has had constant chest discomfort since last Thursday now 6 days. Denies dyspnea. He has fatigue. Denies melena. He initially thought it may be his reflux is unsure at this time. Denies nausea. Recently has been walking a lot and said that has not been a problem. Physical Examination: Well-appearing middle-age male. Vital signs are stable afebrile. Pulse ox 90% on room air no hypoxia. H EENT exam unremarkable. Neck nontender. Lungs clear to auscultation bilaterally. Heart regular rate and rhythm no murmur. Chest wall nontender. Abdomen soft nontender. Normal bowel sounds no peritoneal signs. Calves nontender without edema or cords. Neurologically is awake alert with no focal motor deficits. Test Results: EKG shows a sinus rhythm rate is 66 with no changes from her prior EKG from December of this year. Portable one view chest x-ray shows no acute abnormality read both by myself and the radiologist. CBC normal. BMP normal. Troponin normal. Patient also states he had a stress test one year ago which was negative. Emergency Department Course and Treatment: Patient will undergo cardiac workup. This is been constant pain for like 6 days. He will also be given a GI cocktail and Protonix. Treatment Plan: Patient was treated with a GI cocktail and Protonix which helped his symptoms. I spoke with both he and his . He is comfortable being discharged home. He will stop the Tagamet and be started on Protonix. I will have him follow-up with Dr. Dallin Eduardo also. At this time I do not think this chest pain was cardiac related. Disposition: Discharge Impression: Acute chest pain secondary to gastroesophageal reflux History of CAD, HI with prior cardiac stents ?2 This note was generated with [employer] dictation software. It may contain incorrect words, spelling, and punctuation that were not noted in review of the chart prior to signing ED Disposition - Plan for ED Patient: Chief Complaint: Chest Pain Referrals: Sera Ann MD [Primary Care Provider] -
[2018-06-30 11:28] VITALS: BP 153/90; PULSE 71; RESP 10; O2SAT 97
--- NOTE | 2018-06-30 11:32 | ED.DCSUM_ITS ---
- ER Visit Summary Date of Service: 06/30/18 Chief Complaint: Chest pain History of Present Illness: The patient is a 57 M CAD, prior CO with 2 cardiac stents and most recent from 2013. Patient is on Plavix. He states he has had constant chest discomfort since last Thursday now 6 days. Denies dyspnea. He has fatigue. Denies melena. He initially thought it may be his reflux is unsure at this time. Denies nausea. Recently has been walking a lot and said that has not been a problem. Physical Examination: Well-appearing middle-age male. Vital signs are stable afebrile. Pulse ox 90% on room air no hypoxia. H EENT exam unremarkable. Neck nontender. Lungs clear to auscultation bilaterally. Heart regular rate and rhythm no murmur. Chest wall nontender. Abdomen soft nontender. Normal bowel sounds no peritoneal signs. Calves nontender without edema or cords. Neurologically is awake alert with no focal motor deficits. Test Results: EKG shows a sinus rhythm rate is 66 with no changes from her prior EKG from December of this year. Portable one view chest x-ray shows no acute abnormality read both by myself and the radiologist. CBC normal. BMP normal. Troponin normal. Patient also states he had a stress test one year ago which was negative. Emergency Department Course and Treatment: Patient will undergo cardiac workup. This is been constant pain for like 6 days. He will also be given a GI cocktail and Protonix. Treatment Plan: Patient was treated with a GI cocktail and Protonix which helped his symptoms. I spoke with both he and his . He is comfortable being discharged home. He will stop the Tagamet and be started on Protonix. I will have him follow-up with Dr. Dallin Eduardo also. At this time I do not think this chest pain was cardiac related. Disposition: Discharge Impression: Acute chest pain secondary to gastroesophageal reflux History of CAD, CO with prior cardiac stents ?2 This note was generated with [employer] dictation software. It may contain incorrect words, spelling, and punctuation that were not noted in review of the chart prior to signing ED Disposition - Plan for ED Patient: Chief Complaint: Chest Pain Referrals: Sera Ann MD [Primary Care Provider] -
[2018-06-30] MEDS: Pantoprazole Sodium 40 MG Tablet PO (11:41)
[2018-06-30] MEDS: Mag Hydrox/Al Hydrox/Simeth 30 ML UDC PO (11:42)
[2018-06-30 11:45] LABS: Absolute Lymphocyte Count 1.51 X10^3/ul (0.83-4.51); Absolute Neutrophil Count 5.6 X10^3/uL (2.0-7.7); Basophil# 0.03 X10^3/uL; Basophil% 0.4 % (0-1); Eosinophil# 0.05 X10^3/uL; Eosinophils% 0.6 % (0-5); Hematocrit 48.4 % (40-54); Hemoglobin 16.2 g/dl (13.0-16.5); Lymphocyte # 1.51 X10^3/ul (4.0); Lymphocyte % 19.2 % (19-41); Mean Corp Hgb Conc 33.5 g/gl (32-36); Mean Corpuscular Hgb 29.4 pg (27.0-32.0); Mean Corpuscular Volume 87.8 fL (80-94); Mean Platelet Vol. 10.8 fl (6.2-12.0); Monocyte# 0.67 X10^3/uL; Monocyte% 8.5 % (0-10); Neutrophil # 5.59 X10^3/uL (2.7-7.7); Neutrophil % 71.3 % (47-70); POSITIVE COUNT NO; POSITIVE DIFFERENTIAL NO; POSITIVE MORPHOLOGY NO; Platelet Count 189 K/mm3 (150-450); RBC Distribution Width CV 13.1 % (11.6-14.6); RBC Distribution Width SD 42.3 fl (35.1-43.9); Red Blood Count 5.51 M/mm3 (4.6-6.2); White Blood Count 7.9 K/mm3 (4.4-11.0)
[2018-06-30 11:48] LABS: Anion Gap 8 (5-15); BUN 11 mg/dL (7-18); BUN/Creat Ratio 11.5 RATIO (10-20); Calcium,Total 9.1 mg/dL (8.5-10.1); Chloride 103 mmol/L (98-107); Creatinine, Serum 0.96 mg/dL (0.70-1.30); EST Glomerular Filtration Rate 86 mL/min (>60); Est Glom Filt Rate - Afr Amer 104 mL/min (>60); Glucose 121 mg/dL (74-106); Potassium 3.9 mmol/L (3.5-5.1); Sodium Level 139 mmol/L (136-145)
--- NOTE | 2018-06-30 14:11 | ED.DEP ---
ED Disposition - Plan for ED Patient: Disposition: Home or Assisted Living Chief Complaint: Chest Pain Instructions: ED GERD Prescriptions: Pantoprazole Sodium [Protonix] 40 mg PO DAILY #30 tab Referrals: Delta Esqueda MD [STAFF PHYSICIAN] - As soon as possible Additional Instructions: Stop your Tagamet and begin the Protonix 40 mg once a day. I do not think this is secondary to your heart today. I believe to be secondary to reflux. However with your cardiac history and your recent fatigue I would like you to follow-up with Dr. Delta Esqueda for further evaluation. Return to ER feeling worse.
[2018-06-30 14:31] VITALS: BP 132/90
== END 2018-06-30 14:32 | disposition home or self-care (01) ==
PROVIDERS: Emergency Provider Emergency Medicine; Family Provider Internal Medicine; PCP Internal Medicine
DX: K21.9 Gastro-esophageal reflux disease without esophagitis (principal); I25.10 Atherosclerotic heart disease of native coronary artery without angina pectoris; I25.2 Old myocardial infarction; Z95.5 Presence of coronary angioplasty implant and graft; Z79.01 Long term (current) use of anticoagulants; Z79.82 Long term (current) use of aspirin; Z79.899 Other long term (current) drug therapy
CPT/HCPCS: 71045; 80048; 84484; 85025; 93005; 99284; A4216

== ENCOUNTER 2018-10-23 05:36 | Inpatient (IN) | payer OTHER, SELFPAY ==
[2018-10-23] VITALS (13 sets, daily range): BP systolic 96–131; BP diastolic 58–92; PULSE 80–140; RESP 14–21; TEMP 36.5–37; O2SAT 95–98; BMI 27.4; BMI 27.1; BMI 85.8
--- NOTE | 2018-10-23 05:46 | RAD_ITS ---
STUDY: X-RAY CHEST REASON FOR EXAM: Male, 57 years old. Increased heart rate. Chest pain TECHNIQUE: 1 view COMPARISON: June 21, 2018 FINDINGS: The lungs are clear and expanded. There is no demonstrated pleural abnormality. Normal size heart. Normal mediastinum and mahesh. Normal visualized pulmonary arteries. Normal visualized aortic arch and descending thoracic aorta. Normal visualized thoracic spine. Normal visualized ribs, clavicles, and shoulders. There is no demonstrated abnormality of the visualized soft tissue structures of the upper abdomen. RAD/Chest 1 View (Portable) IMPRESSION: Normal x-ray examination of the chest. No acute findings in the lungs Electronically Signed: Karthik Patrick MD at 6:41 EST Tel , Service support ,
[2018-10-23] MEDS: Metoprolol Tartrate 5 MG/5 ML Vial IV (05:52)
[2018-10-23] MEDS: Aspirin 81 MG TAB.CHEW 324 MG PO (05:52)
[2018-10-23] MEDS: Enoxaparin 100 MG/ML Syringe 90 MG SC (05:53)
[2018-10-23 06:01] LABS: Absolute Lymphocyte Count 2.65 X10^3/ul (0.83-4.51); Absolute Neutrophil Count 6.3 X10^3/uL (2.0-7.7); Basophil# 0.05 X10^3/uL; Basophil% 0.5 % (0-1); Eosinophil# 0.12 X10^3/uL; Eosinophils% 1.2 % (0-5); Hematocrit 50.5 % (40-54); Hemoglobin 17.8 g/dl (13.0-16.5); Lymphocyte # 2.65 X10^3/ul (4.0); Lymphocyte % 26.2 % (19-41); Mean Corp Hgb Conc 35.2 g/gl (32-36); Mean Corpuscular Hgb 29.6 pg (27.0-32.0); Monocyte# 1.02 X10^3/uL; Monocyte% 10.1 % (0-10); Neutrophil # 6.25 X10^3/uL (2.7-7.7); Neutrophil % 61.9 % (47-70); Platelet Count 237 K/mm3 (150-450); RBC Distribution Width CV 13.3 % (11.6-14.6); RBC Distribution Width SD 40.9 fl (35.1-43.9); Red Blood Count 6.01 M/mm3 (4.6-6.2); White Blood Count 10.1 K/mm3 (4.4-11.0)
[2018-10-23 06:02] LABS: POSITIVE COUNT NO; POSITIVE DIFFERENTIAL NO; POSITIVE MORPHOLOGY NO
--- NOTE | 2018-10-23 06:04 | ED.DCSUM_ITS ---
- ER Visit Summary Date of Service: 10/23/18 Chief Complaint: Chest pressure that is been intermittent over the past 2 days, dizziness, dyspnea and dyspnea on exertion History of Present Illness: The patient is a 57 M who has known coronary disease with 2 stents in his LAD. He also has history of hypertension. He presents because of rapid heartbeat that he is noted over the past 2 days. He does report dyspnea and dyspnea with exertion over the past 2 days. He has had chest tightness that is bilateral. There have been episodes of radiated to his jaw. There was an episode to associate with shortness of breath. He denied diaphoresis. He states he did not have chest pain when he had his 2 prior MIs. He denies fever, chills night sweats. He denies runny nose, congestion postnasal drainage. He denies ringing in his ears or decreased hearing. He denies sore throat. He presently has minimal chest tightness at best. He denies food intolerance. He denies abdominal pain or back pain. He denies leg pain, symptoms of claudication. He denies leg swelling or discoloration. He denies history of PE or DVT. He does take Plavix and aspirin daily. His last dose of aspirin was yesterday morning. He states he has not had as much energy last 2 days and has not exercise like he normally does. Matter of fact, he states he did not walk on the treadmill which is unusual for him not too. Physical Examination: Vital signs are marked for an elevated blood pressure 131/92, heart rate of 119 and respiratory rate of 21. He is not febrile nor is he hypoxic. Head is atraumatic normocephalic. Pupils are equal round reactive. Extraocular muscles are intact. TMs are pearly white with landmarks noted. Nares patent with no drainage. Posterior pharynx without erythema or exudate. Uvula is midline. There is no dysphonia or dysphasia. Trachea is midline. There is no stridor with auscultation of the neck. Heart is irregularly irregular and rapid. No murmur, gallop or rub. Lungs are clear to auscultation. Abdomen is soft nontender. Lower extremity exam reveals no swelling, discoloration, ligament distention, palpable coarseness on the distribution deep venous system. DP and PT pulses are 2+ and palpable. There is no stigmata of peripheral arterial disease. Neuro exam is nonfocal. Test Results: EKG A. fib RVR with minimal ossific changes. The ST segments are unchanged from prior EKG dated June 30, 2018. Single view chest x-ray reveals normal cardiac silhouette and mediastinum. Lung parenchyma is normal. CBC unremarkable. Hemoglobin was 17.8. Basic metabolic panel is unremarkable. Glucose is elevated 122. First troponin 0 0.021. Emergency Department Course and Treatment: IV was established. He was treated with 4 baby aspirin, 5 mg of metoprolol for rate control and 1 mg/kg of Lovenox. Chest x-ray and blood work was obtained to evaluate the cause of his discomfort. Treatment Plan: PCU for further testing and monitoring Disposition: PCU inpatient Impression: 1. New onset A. fib with RVR 2. Chest pain 3. History coronary disease 4. His hypertension This note was generated with [employer] dictation software. It may contain incorrect words, spelling, and punctuation that were not noted in review of the chart prior to signing ED Disposition - Plan for ED Patient: Chief Complaint: Chest Pain Referrals: Sera Ann MD [Primary Care Provider] -
[2018-10-23 06:14] LABS: Anion Gap 8 (5-15); BUN 16 mg/dL (7-18); BUN/Creat Ratio 15.7 RATIO (10-20); Calcium,Total 8.9 mg/dL (8.5-10.1); Chloride 104 mmol/L (98-107); Creatinine, Serum 1.02 mg/dL (0.70-1.30); EST Glomerular Filtration Rate 80 mL/min (>60); Est Glom Filt Rate - Afr Amer 96 mL/min (>60); Estimated Creatinine Clearance 81.51 ml/min; Glucose 122 mg/dL (74-106); Potassium 3.7 mmol/L (3.5-5.1); Sodium Level 142 mmol/L (136-145)
--- NOTE | 2018-10-23 06:32 | HP.PCM_ITS ---
History of Present Illness Date of Admission: 10/23/18 Chief Complaint: palpitations, chest pressure The patient is a 57 year old M with a history of coronary artery disease status post stent x2. He was admitted through the ED on 10/23/2018 with a complaint of palpitations, chest pressure and general feeling of unwellness for the past 2 days. Patient states he just did not feel well and felt like there was something will get noticed that his pulse was very high, though he did not give an exact number. He also had some chest pressure assisted with palpitations and had assisted lightheadedness and dizziness. He complained of fever and chills but denied any cough or shortness of breath, abdominal pain, any diarrhea vomiting. He states that his previous heart attacks in assisted to the placement of stents were very atypical he just felt unwell at that time to so he was worried and decided to come in to be checked out. On arrival in the ED he was found to be in A. fib with RVR with his heart rate been in the 140s and was tachypneic as well. He was given a dose of metoprolol which brought the heart rate down to the 80s but he was still in A. fib. CBC and chemistries were essentially unremarkable. Initial troponin was negative. chest x-ray showed no acute ST changes. EKG showed A. fib with RVR and left axis deviation but no acute ST changes. He is been admitted to be managed for new onset A. fib with RVR and chest pressure to rule out ACS. [] Past Medical History Past Medical History (Chronic Problems): Chronic Problems Status post insertion of drug-eluting stent into left anterior descending artery for coronary artery disease (Chronic) Coronary artery disease (Chronic) Prediabetes (Chronic) Hypertension (Chronic) Dyslipidemia (Chronic) Allergies amoxicillin [Amoxicillin] Allergy (Verified 12/19/17 10:32) Hives tetracycline [Tetracycline] Allergy (Verified 12/19/17 10:32) Unknown Home Medications: Ambulatory Orders Medication Instructions Recorded Carvedilol [Coreg (Beta Fredy)] 3.125 mg PO BID 11/15/13 Nitroglycerin [Nitrostat] 0.4 mg SUBLINGUAL Q5M PRN 11/15/13 Aspirin [Aspirin, Baby] 81 mg PO DAILY@0800 #0 tab.chew 12/13/14 Atorvastatin Calcium [Lipitor] 80 mg PO QHS #0 tablet 12/13/14 Clopidogrel Bisulfate [Plavix] 75 mg PO DAILY #0 tablet 12/13/14 Omeprazole [Prilosec] 20 mg PO DAILY 10/23/18 Surgical History: no surgical history Psychiatric History: No pertinent psych hx Lives: Spouse/ Significant Other Smoking Status: Former smoker Tobacco Use: Non-smoker Alcohol: Occasional Drugs: None - *Family History Paternal History Items: No pertinent history Review of Systems Constitutional: Reports: Chills, Fever, Malaise, Weakness, Fatigue. Denies: A norexia Eyes: Denies: Blurred vision HEENT: Denies: Head Aches, Sinus Congestion, Sinus Drainage Cardiovascular: Reports: Chest Pressure, Palpitations. Denies: Chest Pain, Chest Tightness, Edema, Orthopnea, Paroxysmal Noc. Dyspnea, Syncope Respiratory: Denies: Cough, Shortness of Breath, Shortness of breath at rest, Shortness of breath upon exertion, Sputum production Gastrointestinal: Denies: Abdominal Pain, Nausea, Vomiting Genitourinary: Denies: Dysuria Musculoskeletal: Denies: Joint Pain, Joint Tenderness Skin: Denies: Rash, Wounds Neurological: Denies: Numbness, Tingling, Focal weakness Psychiatric: Denies: Anxiety, Depression, Homicidal Ideations, Suicidal Ideations Hematologic/ Lymphatic: Denies: Easy Bruising, Easy Bleeding VTE Information - Inpt Only VTE Present on Admission: No VTE Pharm Prophylaxis ordered?: Yes - Physical Exam General: Alert, Oriented x3, Cooperative, No apparent distress HEENT: Atraumatic, PERRLA, EOMI, Normocephalic Oral: Moist Mucosa Neck: Supple, No JVD, Negative Carotid Bruits Lungs: Clear to auscultation, Normal air movement, No rhonchi, No wheeze, No rales Cardiovascular: Normal S2, No murmurs, Irregular Rate - and rhythm. Afib, rate controlled Abdomen: Bowel Sounds Present, Soft, Non Tender, Non-Distended, No Hepato- splenomegaly Extremities: No clubbing, No cyanosis, No edema, Capillary Refill Less than 3 Seconds Skin: No rashes, No breakdown Musculoskeletal: No Tenderness to Palpation of Joints or Extremities Lymphatic: No Cervical, Supraclavicular, or Inguinal Adenopathy Neurological: Cranial nerves II-XII grossly intact, Neuro grossly intact, Motor Exam 5/5 strength throughout Psych/Mental Status: Normal Affect, Appropriate, Alert and oriented to time, place, person, mood and affect Vital Signs Temp Pulse Resp BP Pulse Ox 98.6 F 119 H 21 H 131/92 H 98 10/23/18 05:37 10/23/18 05:47 10/23/18 05:47 10/23/18 05:37 10/23/18 05:47 Oxygen Delivery Method Room Air Weight: 191 lb 9.307 oz Body Mass Index (BMI) 27.4 Laboratory Tests Past 24 Hrs 10/23/18 10/23/18 05:40 05:40 WBC 10.1 RBC 6.01 Hgb 17.8 H Hct 50.5 MCV 84.0 MCH 29.6 MCHC 35.2 RDW 13.3 RDW Differential 40.9 Plt Count 237 MPV 11.0 Immature Gran % (Auto) 0.100 Neut % (Auto) 61.9 Lymph % (Auto) 26.2 [place] % (Auto) 10.1 H Eos % (Auto) 1.2 Baso % (Auto) 0.5 Absolute Neuts (auto) 6.3 Absolute Lymphs (auto) 2.65 Total Counted Not Reportable Sodium 142 Potassium 3.7 Chloride 104 Carbon Dioxide 30.0 Anion Gap 8 BUN 16 Creatinine 1.02 Estim Creat Clear Calc 81.51 Est GFR (MDRD) Af Amer 96 Est GFR (MDRD) Non-Af 80 BUN/Creatinine Ratio 15.7 Glucose 122 H Calcium 8.9 Troponin I 0.021 Diagnostic Data Chest X-Ray 10/23/18 05:46 IMPRESSION: Normal x-ray examination of the chest. No acute findings in the lungs Electronically Signed: Karthik Patrick MD at 6:41 EST Tel , Service support , Assessment/Plan All Active Problems Unstable angina (Acute) Chest pain (Acute) 57-year-old male admitted with a complaint of general feeling of unwellness and chest pressure as well as palpitations. 1. New onset Afib with RVR * HR in 140s on arrival in ED; went down to 80s after a dose of IV lopressor * EKG shows no acute ST changes * admit to PCU with telemetry * initial EKG negative * increase dose of carvedilol ot help control Afib * received one dose of therapeutic dose of lovenox in ED * last cath:2014- normal coronary angiographic findings with EF of 60% * stress echo o/a of chest pressure * check TSH * cardiology consult * CHADVASC score-2 (CAD and hypertension) * continue with therapeutic dose of lovenox; will need to be transitioned to oral anticoagulants * 2. Chest pressure to rule out ACS * initial troponin negative; EKG showed no acute ST changes * cycle troponins * on PO aspirin 81mg daily. SL nitroglycerin prn * stress echo if troponins are negative. 3. CAD s/ps tent x 2: last stent was ~ [address] Nagel. on aspiron, statin, plavix and carvedilol 4. Hypertension: controlled. On carvedilol 5. GERD: on PPI DVT prophylaxis:therapeutic lovenox Code Visit Inpatient E&M: 76521 Init Hosp L3
--- NOTE | 2018-10-23 07:40 | STE_ITS ---
Reason For Study: Atrial Fibrillation Stress Results Protocol: Rafat Protocol Maximum Predicted HR: 162 bpm Target HR: 138 bpm % Maximum Predicted HR: 106 % DurationHeart Rate Stage (mm:ss) (bpm) BP Comment Baseline 93 118/80No Chest Pain Rafat Protocol Stage I 3:00 151 126/72No Chest Pain; Mild Dyspnea Rafat Protocol Stage II 3:00 169 134/76No Chest Pain; Mild Dyspnea Rafat Protocol Stage III 2:00 171 146/70No Chest Pain; Mild Dyspnea Recovery 109 122/80No Chest Pain Stress Duration: 8:00 mm:ss Maximum Stress HR: 171 bpm METS: 10 Baseline Echocardiogram Findings The estimated ejection fraction is 65 %. Stress Echo Wall motion Data Resting WM Intermediate WM Stress WM Resting Wall Motion Wall Motion Stress No regional wall motion No regional wall motion abnormalities noted. abnormalities noted. EKG Data Atrial fibrillation with rapid ventricular response. The patient exercised according to the regular Rafat protocol for a total duration of 8:00. The maximum heart rate attained was 196 beats per minute. This was 120% of maximum predicted heart rate. The patient exercised into stage 3 of the Rafat protocol. During stress, there were no ST or T wave changes noted to suggest ischemia. No clinical angina was noted. Interpretation Summary The estimated ejection fraction is 65 %. Normal, adequate, treadmill echocardiogram. Negative for ischemia by EKG and echocardiographic criteria. No anginal symptoms noted. Patient had baseline atrial fibrillation with rapid ventricular response. Rare PVCs and occasional aberrant beats during exercise. Final LVEF is 75%. Appropriate blood pressure response to exercise. Test terminated due to elevated heart rate. No complications. Ordering Physician: Shawanda Gracia Referring Physician: Damon Nagel Performed By: Pauly Wen, RDCS, RVT
--- NOTE | 2018-10-23 07:40 | ECHOD_ITS ---
Reason For Study: AFIB Procedure This was a 2D Doppler, Color Flow transthoracic echocardiogram. Exam performed in department. Left Ventricle Normal size and thickness. The estimated ejection fraction is 65 %. Unable to assess diastolic dysfunction due to arrhythmia. No regional wall motion abnormalities noted. Right Ventricle Normal size and thickness. Normal systolic function. Atria Normal left atrium. Normal right atrium. Normal atrial septum. Mitral Valve The mitral valve is structurally normal. No prolapse or stenosis seen. Tricuspid Valve Normal tricuspid valve. Trivial tricuspid valve insufficiency. Right ventricular systolic pressure estimated to be 38 mmHg. Mild pulmonary hypertension. Aortic Valve Normal aortic valve. Trisinus/trileaflet aortic valve. Pulmonic Valve Normal pulmonic valve. Great Vessels Normal aortic root. Normal arch. Normal inferior vena cava. Inferior vena cava collapse with respiration. Pericardium/Pleural No pericardial effusion. MMode/2D Measurements & Calculations LVIDd: 4.1 cm IVSd: 1.1 cm Ao root diam: 3.4 cm LVIDs: 2.9 cm LVPWd: 1.2 cm RVDd: 3.1 cm FS: 30.8 % LAV(MOD-bp): 28.2 ml EDV(MOD-sp4): 80.3 ml EDV(MOD-sp2): 48.4 ml LAV(MOD-bp) Indexed: 13.8 ml/m2 ESV(MOD-sp4): 26.0 ml EF(MOD-sp2): 64.4 % LAV(MOD-sp2): 27.7 ml EF(MOD-sp4): 67.6 % LAV(MOD-sp4): 27.1 ml SV(MOD-sp4): 54.3 ml SV(MOD-sp2): 31.2 ml LA A4 area: 12.8 cm2 LA dimension(2D): 3.4 cm RA A4 area: 9.9 cm2 Time Measurements MV dec time: 0.21 sec Doppler Measurements & Calculations MV E max sukumar: 62.7 cm/sec Ao V2 max: 74.0 cm/sec LV V1 max: 61.3 cm/sec Ao max P.3 mmHg LV V1 max P.5 mmHg PA V2 max: 98.0 cm/sec TR max sukumar: 252.5 cm/sec TR max P.5 mmHg Interpretation Summary The estimated ejection fraction is 65 %. Unable to assess diastolic dysfunction due to arrhythmia. Trivial tricuspid valve insufficiency. Right ventricular systolic pressure estimated to be 38 mmHg. Mild pulmonary hypertension. Pt appears to be in atrial fibrillation. There is no comparison study available. Ordering Physician: Shawanda Gracia Referring Physician: NORRIS BUENO Performed By: Pauly Wen, LANEY, RVT
[2018-10-23 09:16] LABS: Thyroid Stim Hormone (TSH) 0.79 uIU/mL (0.358-3.74)
--- NOTE | 2018-10-23 10:11 | CON.PCM_ITS ---
Problem List (1) Atrial fibrillation Status: Acute (2) Status post insertion of drug-eluting stent into left anterior descending artery for coronary artery disease Status: Chronic (3) Coronary artery disease Status: Chronic (4) Hypertension Status: Chronic (5) Dyslipidemia Status: Chronic Reason for Consult Date of Consultation: 10/23/18 Reason for Consultation: Coronary artery disease status post LAD stent, hypertension, hyperlipidemia, new onset atrial fibrillation History of Present Illness: The patient is a 57 year old M, patient of Dr. Adam's, previously seen by me in the distant past status post angioplasty and stenting to his LAD several years a go with relook catheterization [place] [address] Adam. At that time his stent was found to be widely patent and he had no high-grade lesions of any other vessels with preserved LV function. Patient has never been known to have atrial fibrillation in the past but does have a history of GERD recently seen by my colleague Dr. Bae for non-atypical chest pain. He underwent a recent stress test in December 2017 which was negative for inducible ischemia. He was treated with PPI therapy. Ever since , the patient has had a bourbon and coke every day or so, as well as excessive amount of caffeine drinking up to 3 cups of coffee per day. He is also been under an enormous amount of stress, and sleeping well. He has never been diagnosed with obstructive sleep apnea but feels he may have it. About 2 days ago patient began feeling jittery and anxious, and noted he had a rapid pulse. Patient had chest burning type symptoms similar to his reflux disease but no recurrent anginal symptoms as he had prior to his LAD stenting. Patient also had cold sweats but no fevers or chills. When this did not improve, and his pulse was quite rapid, he sought medical attention at [facility] last evening. An EKG demonstrated atrial fibrillation with rapid ventricular response. His first 2 troponins were negative, and he underwent a repeat stress test in the form of a treadmill echocardiogram which was negative for inducible ischemia at an excellent workload. Patient was treated with Lovenox, and Coreg therapy. Patient is unsure of exactly when he went into atrial fibrillation, making DC cardioversion somewhat problematic at this time. He is currently resting comfortably. [] Past Medical History Allergies/Adverse Reactions: Allergies amoxicillin [Amoxicillin] Allergy (Verified 12/19/17 10:32) Hives tetracycline [Tetracycline] Allergy (Verified 12/19/17 10:32) Unknown Home Medications: Ambulatory Orders Medication Instructions Recorded Carvedilol [Coreg (Beta Fredy)] 3.125 mg PO BID 11/15/13 Nitroglycerin [Nitrostat] 0.4 mg SUBLINGUAL Q5M PRN 11/15/13 Aspirin [Aspirin, Baby] 81 mg PO DAILY@0800 #0 tab.chew 12/13/14 Atorvastatin Calcium [Lipitor] 80 mg PO QHS #0 tablet 12/13/14 Clopidogrel Bisulfate [Plavix] 75 mg PO DAILY #0 tablet 12/13/14 L.acidoph,Paracasei, B.lactis 1 each PO DAILY 10/23/18 [Probiotic] Omeprazole [Prilosec] 20 mg PO DAILY 10/23/18 Past Medical History (Chronic Problems): Chronic Problems Status post insertion of drug-eluting stent into left anterior descending artery for coronary artery disease (Chronic) Coronary artery disease (Chronic) Prediabetes (Chronic) Hypertension (Chronic) Dyslipidemia (Chronic) Surgical History: no surgical history Psychiatric History: No pertinent psych hx - *Family History Paternal History Items: No pertinent history Lives: Spouse/ Significant Other Smoking Status: Former smoker Tobacco Use: Non-smoker Alcohol: Occasional Drugs: None Review of Systems - Review of Systems General: Denies: Fever, Night Sweats, Fatigue Cardiovascular: Reports: Chest Discomfort at Rest, Palpitations. Denies: Chest Discomfort, Shortness of Breath, Orthopnea, PND, Peripheral Edema, Lightheadedness, Dizziness, Near Syncope, Syncope Respiratory: Denies: Cough, Sputum Production, Hemoptysis Gastrointestinal: Denies: Hematemesis, Hematochezia, Melena Genitourinary: Denies: Dysuria, Hematuria Skin: Denies: Rash Subjectve: Patient resting comfortably, at bedside. No acute distress. Objective: Vital Signs Temp Pulse Resp BP Pulse Ox 98.6 F 95 21 H 131/92 H 98 10/23/18 05:37 10/23/18 07:29 10/23/18 05:47 10/23/18 05:37 10/23/18 05:47 Oxygen Delivery Method Room Air Weight: 189 lb 2.506 oz Body Mass Index (BMI) 27.1 General: Awake, Alert, Oriented x 3 HEENT: PERRL, EOMI, Sclera Non Icteric Neck: Supple, Good ROM, No Lymph Node Enlargement Lungs: Clear to auscultation Cardiovascular: Irregular Rhythm, Normal S1, Normal S2, No Murmurs, No Rubs, No Gallops Vascular: No Carotid Bruits, Normal Femoral Pulses, Normal Radial Pulses, Normal Dorsalis Pedal Pulse, Normal Posterior Tibial Pulses Abdomen: Bowel Sounds Present, Soft, Non Tender, No HSM, No Organomegaly Extremities: No Cyanosis, No Clubbing, No edema Neurological: No Focal Motor or Sensory Deficit 10/23/18 05:40: WBC 10.1, RBC 6.01, Hgb 17.8 H, Hct 50.5, MCV 84.0, MCH 29.6, MCHC 35.2, RDW 13.3, RDW Differential 40.9, Plt Count 237, MPV 11.0, Immature Gran % (Auto) 0.100, Neut % (Auto) 61.9, Lymph % (Auto) 26.2, [place] % (Auto) 10.1 H, Eos % (Auto) 1.2, Baso % (Auto) 0.5, Absolute Neuts (auto) 6.3, Total Counted Not Reportable 10/23/18 05:40: Sodium 142, Potassium 3.7, Chloride 104, Carbon Dioxide 30.0, Anion Gap 8, BUN 16, Creatinine 1.02, Est GFR (MDRD) Af Amer 96, Est GFR (MDRD) Non-Af 80, BUN/Creatinine Ratio 15.7, Glucose 122 H, Calcium 8.9, Troponin I 0.021 10/23/18 08:23: Troponin I 0.017 Rhythm: EKG: EKG showed atrial fibrillation with rapid ventricular response, low voltage in the limb leads, no acute changes. ECHO: Pending. Stress Test: Negative for inducible ischemia. Cardiac Cath: PCI: CT Surgery: Holter monitor: EPS: PPM: CXR: Chest CT Scan: Assessment/Plan 1. Atrial fibrillation: The patient has new onset atrial fibrillation, possibly made worse by excessive caffeine, alcohol, psychosocial stress, and possible undiagnosed obstructive sleep apnea. Patient's troponins were negative x2, and his stress test was negative for inducible ischemia. 2D echo with Doppler is pending at this time. I recommended reinitiation of Coreg 3.125 mg p.o. twice daily and titrating up from there. He will continue Lovenox therapy and be transition to Eliquis 5 mg p.o. twice daily. Do not recommend repeat catheterization at this time. Advised the patient to discontinue all alcohol, tobacco, and caffeinated beverages in order to hopefully revert him back to normal sinus rhythm. If this does not take place in the next few weeks, we will proceed with DC cardioversion after at least 3 weeks time of Eliquis therapy. In addition I recommend an outpatient sleep study as he most likely has obstructive sleep apnea given his signs and symptoms and atrial fibrillation. 2. Coronary artery disease: No exertional anginal symptoms either prior to or subsequent to his atrial fibrillation. Stress echocardiogram this morning is negative for inducible ischemia with no anginal symptoms. No repeat catheterization recommended at this time. 3. Hyperlipidemia: Recommend obtaining a fasting lipid profile. Will make adjustments to his statin based medicines as indicated. His LDL should be less than 70. 4. Thank you very much for the opportunity to participate in the cardiac care of your patient. Consultation time took place between 830 and 9 AM. Code Visit Inpatient E&M: 09726 Init Hosp L2
[2018-10-23] MEDS: Pantoprazole Sodium 20 MG Tablet PO (10:32)
[2018-10-23] MEDS: Clopidogrel Bisulfate 75 MG Tablet PO (10:32)
[2018-10-23] MEDS: Carvedilol 3.125 MG TABLET PO ×2 (11:30→22:13)
[2018-10-23] MEDS: dilTIAZem 25 MG/5 ML Vial 10 MG IV BOLUS (11:49)
--- NOTE | 2018-10-23 13:13 | PCM.PROGNOTE ---
<Lisa Parra - Last Filed: 10/23/18 13:21> Patient Problems: Active and Suspected Problems Atrial fibrillation (Acute) Subjective: Patient seen and examined. Denies chest pain, shortness of breath, palpitations. Complains of anxiety related to family issues involving the holidays. Requesting medication for anxiety at discharge. He feels that his anxiety is the cause of his current atrial fibrillation. - Physical Exam General: Alert, Oriented x3, Cooperative, No apparent distress HEENT: Atraumatic, PERRLA, EOMI, Normocephalic Neck: Supple, No JVD, Negative Carotid Bruits Lungs: Clear to auscultation, Normal air movement Cardiovascular: No murmurs, - - Atrial fibrillation, tachycardic Abdomen: Bowel Sounds Present, Soft, Non Tender, Non-Distended Extremities: No clubbing, No cyanosis, No edema, Capillary Refill Less than 3 Seconds Skin: No rashes, No breakdown Musculoskeletal: No Tenderness to Palpation of Joints or Extremities Neurological: Cranial nerves II-XII grossly intact, Neuro grossly intact Psych/Mental Status: Normal Affect, Appropriate Vital Signs Temp Pulse Resp BP Pulse Ox 98.3 F 140 H 16 109/66 97 10/23/18 10:30 10/23/18 11:48 10/23/18 10:30 10/23/18 11:48 10/23/18 10:30 Oxygen Delivery Method Room Air Weight: 189 lb 2.506 oz Body Mass Index (BMI) 27.1 Intake and Output for Last 24 Hours 10/21/18 10/22/18 10/23/18 23:59 23:59 23:59 Intake Total 600 / 600 Balance 600 / 600 Laboratory Tests Past 24 Hrs 10/23/18 10/23/18 10/23/18 05:40 05:40 05:40 WBC 10.1 RBC 6.01 Hgb 17.8 H Hct 50.5 MCV 84.0 MCH 29.6 MCHC 35.2 RDW 13.3 RDW Differential 40.9 Plt Count 237 MPV 11.0 Immature Gran % (Auto) 0.100 Neut % (Auto) 61.9 Lymph % (Auto) 26.2 [place] % (Auto) 10.1 H Eos % (Auto) 1.2 Baso % (Auto) 0.5 Absolute Neuts (auto) 6.3 Absolute Lymphs (auto) 2.65 Total Counted Not Reportable Sodium 142 Potassium 3.7 Chloride 104 Carbon Dioxide 30.0 Anion Gap 8 BUN 16 Creatinine 1.02 Estim Creat Clear Calc 81.51 Est GFR (MDRD) Af Amer 96 Est GFR (MDRD) Non-Af 80 BUN/Creatinine Ratio 15.7 Glucose 122 H Calcium 8.9 Troponin I 0.021 TSH 0.79 10/23/18 08:23 WBC RBC Hgb Hct MCV MCH MCHC RDW RDW Differential Plt Count MPV Immature Gran % (Auto) Neut % (Auto) Lymph % (Auto) [place] % (Auto) Eos % (Auto) Baso % (Auto) Absolute Neuts (auto) Absolute Lymphs (auto) Total Counted Sodium Potassium Chloride Carbon Dioxide Anion Gap BUN Creatinine Estim Creat Clear Calc Est GFR (MDRD) Af Amer Est GFR (MDRD) Non-Af BUN/Creatinine Ratio Glucose Calcium Troponin I 0.017 TSH Medical Necessity - Tobacco Use Smoking Status: Former smoker Tobacco Use: Non-smoker Assessment/Plan All Active Problems Unstable angina (Acute) Chest pain (Acute) Atrial fibrillation (Acute) 1. New onset atrial fibrillation with RVR-cardiology following. Echocardiogram with EF 65%, RVSP estimated to be 38 mmHg, mild pulmonary hypertension. TSH within normal limits. Stress echo without evidence of ischemia. IV Cardizem x1. Continue carvedilol with titration as necessary. Patient started on Eliquis 5 mg twice daily. Possible cardioversion in 3 weeks if patient does not convert. HR remains tachycardic intermittently. 2. CAD status post stents x2-follows with Dr. Esqueda, [facility] cardiology. EKG without ST-T changes. Troponin negative. Stress echo without evidence of ischemia as noted above. Continue aspirin, statin, Plavix, carvedilol. 3. Hypertension-stable, continue carvedilol. 4. GERD-continue PPI. 5. Anxiety-patient reports he was on benzodiazepines short-term for situational anxiety in the past. Requesting anxiety medication at discharge to get him through the holidays. DVT prophylaxis-Eliquis. This patient was seen by CHIO Da Silva under the supervision of Dr. Zuniga. <Woo Zuniga - Last Filed: 10/23/18 14:34> Subjective: No chest pain. No shortness of breath. - Physical Exam General: Alert, Cooperative, No apparent distress HEENT: Atraumatic, Normocephalic Oral: Moist Mucosa, No Gingival or Mucosal Lesions/ Ulcerations Neck: No Nodes, Thyroid Normal Size and Texture Lungs: Clear to auscultation, Normal air movement, No rhonchi, No wheeze Cardiovascular: No murmurs, - Abdomen: Bowel Sounds Present, Soft, Non Tender, Non-Distended Extremities: No edema, Capillary Refill Less than 3 Seconds Skin: No rashes, No breakdown Psych/Mental Status: Normal Affect, Appropriate Vital Signs Temp Pulse Resp BP Pulse Ox 36.8 C 106 H 16 96/66 96 10/23/18 10:30 10/23/18 13:29 10/23/18 13:29 10/23/18 13:29 10/23/18 13:29 Oxygen Delivery Method Room Air Weight: 85.8 kg Body Mass Index (BMI) 27.1 Intake and Output for Last 24 Hours 10/21/18 10/22/18 10/23/18 23:59 23:59 23:59 Intake Total 600 / 600 Balance 600 / 600 Laboratory Tests Past 24 Hrs 10/23/18 10/23/18 10/23/18 05:40 05:40 05:40 WBC 10.1 RBC 6.01 Hgb 17.8 H Hct 50.5 MCV 84.0 MCH 29.6 MCHC 35.2 RDW 13.3 RDW Differential 40.9 Plt Count 237 MPV 11.0 Immature Gran % (Auto) 0.100 Neut % (Auto) 61.9 Lymph % (Auto) 26.2 [place] % (Auto) 10.1 H Eos % (Auto) 1.2 Baso % (Auto) 0.5 Absolute Neuts (auto) 6.3 Absolute Lymphs (auto) 2.65 Total Counted Not Reportable Sodium 142 Potassium 3.7 Chloride 104 Carbon Dioxide 30.0 Anion Gap 8 BUN 16 Creatinine 1.02 Estim Creat Clear Calc 81.51 Est GFR (MDRD) Af Amer 96 Est GFR (MDRD) Non-Af 80 BUN/Creatinine Ratio 15.7 Glucose 122 H Calcium 8.9 Troponin I 0.021 TSH 0.79 10/23/18 08:23 WBC RBC Hgb Hct MCV MCH MCHC RDW RDW Differential Plt Count MPV Immature Gran % (Auto) Neut % (Auto) Lymph % (Auto) [place] % (Auto) Eos % (Auto) Baso % (Auto) Absolute Neuts (auto) Absolute Lymphs (auto) Total Counted Sodium Potassium Chloride Carbon Dioxide Anion Gap BUN Creatinine Estim Creat Clear Calc Est GFR (MDRD) Af Amer Est GFR (MDRD) Non-Af BUN/Creatinine Ratio Glucose Calcium Troponin I 0.017 TSH Assessment/Plan Patient seen and examined independently. Data reviewed. I agree with the above note by the nurse practitioner. 1. Atrial fibrillation with RVR Rate controlled at this time but did receive a one-time dose of IV Cardizem shortly before my evaluation Continue with carvedilol Anticoagulated with Eliquis Possible cardioversion as outpatient Monitor overnight to ensure stability of his heart rhythm. 2. Chest pain Stress test negative Continue with aspirin, Plavix and statin. Code Visit Inpatient E&M: 38888 Subs Hosp L2
--- NOTE | 2018-10-23 13:21 | PN_ITS ---
<Lisa Parra - Last Filed: 10/23/18 13:21> Patient Problems: Active and Suspected Problems Atrial fibrillation (Acute) Subjective: Patient seen and examined. Denies chest pain, shortness of breath, palpitations. Complains of anxiety related to family issues involving the holidays. Requesting medication for anxiety at discharge. He feels that his anxiety is the cause of his current atrial fibrillation. - Physical Exam General: Alert, Oriented x3, Cooperative, No apparent distress HEENT: Atraumatic, PERRLA, EOMI, Normocephalic Neck: Supple, No JVD, Negative Carotid Bruits Lungs: Clear to auscultation, Normal air movement Cardiovascular: No murmurs, - - Atrial fibrillation, tachycardic Abdomen: Bowel Sounds Present, Soft, Non Tender, Non-Distended Extremities: No clubbing, No cyanosis, No edema, Capillary Refill Less than 3 Seconds Skin: No rashes, No breakdown Musculoskeletal: No Tenderness to Palpation of Joints or Extremities Neurological: Cranial nerves II-XII grossly intact, Neuro grossly intact Psych/Mental Status: Normal Affect, Appropriate Vital Signs Temp Pulse Resp BP Pulse Ox 98.3 F 140 H 16 109/66 97 10/23/18 10:30 10/23/18 11:48 10/23/18 10:30 10/23/18 11:48 10/23/18 10:30 Oxygen Delivery Method Room Air Weight: 189 lb 2.506 oz Body Mass Index (BMI) 27.1 Intake and Output for Last 24 Hours 10/21/18 10/22/18 10/23/18 23:59 23:59 23:59 Intake Total 600 / 600 Balance 600 / 600 Laboratory Tests Past 24 Hrs 10/23/18 10/23/18 10/23/18 05:40 05:40 05:40 WBC 10.1 RBC 6.01 Hgb 17.8 H Hct 50.5 MCV 84.0 MCH 29.6 MCHC 35.2 RDW 13.3 RDW Differential 40.9 Plt Count 237 MPV 11.0 Immature Gran % (Auto) 0.100 Neut % (Auto) 61.9 Lymph % (Auto) 26.2 [place] % (Auto) 10.1 H Eos % (Auto) 1.2 Baso % (Auto) 0.5 Absolute Neuts (auto) 6.3 Absolute Lymphs (auto) 2.65 Total Counted Not Reportable Sodium 142 Potassium 3.7 Chloride 104 Carbon Dioxide 30.0 Anion Gap 8 BUN 16 Creatinine 1.02 Estim Creat Clear Calc 81.51 Est GFR (MDRD) Af Amer 96 Est GFR (MDRD) Non-Af 80 BUN/Creatinine Ratio 15.7 Glucose 122 H Calcium 8.9 Troponin I 0.021 TSH 0.79 10/23/18 08:23 WBC RBC Hgb Hct MCV MCH MCHC RDW RDW Differential Plt Count MPV Immature Gran % (Auto) Neut % (Auto) Lymph % (Auto) [place] % (Auto) Eos % (Auto) Baso % (Auto) Absolute Neuts (auto) Absolute Lymphs (auto) Total Counted Sodium Potassium Chloride Carbon Dioxide Anion Gap BUN Creatinine Estim Creat Clear Calc Est GFR (MDRD) Af Amer Est GFR (MDRD) Non-Af BUN/Creatinine Ratio Glucose Calcium Troponin I 0.017 TSH Medical Necessity - Tobacco Use Smoking Status: Former smoker Tobacco Use: Non-smoker Assessment/Plan All Active Problems Unstable angina (Acute) Chest pain (Acute) Atrial fibrillation (Acute) 1. New onset atrial fibrillation with RVR-cardiology following. Echocardiogram with EF 65%, RVSP estimated to be 38 mmHg, mild pulmonary hypertension. TSH within normal limits. Stress echo without evidence of ischemia. IV Cardizem x1. Continue carvedilol with titration as necessary. Patient started on Eliquis 5 mg twice daily. Possible cardioversion in 3 weeks if patient does not convert. HR remains tachycardic intermittently. 2. CAD status post stents x2-follows with Dr. Esqueda, [facility] cardiology. EKG without ST-T changes. Troponin negative. Stress echo without evidence of ischemia as noted above. Continue aspirin, statin, Plavix, carvedilol. 3. Hypertension-stable, continue carvedilol. 4. GERD-continue PPI. 5. Anxiety-patient reports he was on benzodiazepines short-term for situational anxiety in the past. Requesting anxiety medication at discharge to get him through the holidays. DVT prophylaxis-Eliquis. This patient was seen by CHIO Da Silva under the supervision of Dr. Zuniga. <Woo Zuniga - Last Filed: 10/23/18 14:34> Subjective: No chest pain. No shortness of breath. - Physical Exam General: Alert, Cooperative, No apparent distress HEENT: Atraumatic, Normocephalic Oral: Moist Mucosa, No Gingival or Mucosal Lesions/ Ulcerations Neck: No Nodes, Thyroid Normal Size and Texture Lungs: Clear to auscultation, Normal air movement, No rhonchi, No wheeze Cardiovascular: No murmurs, - Abdomen: Bowel Sounds Present, Soft, Non Tender, Non-Distended Extremities: No edema, Capillary Refill Less than 3 Seconds Skin: No rashes, No breakdown Psych/Mental Status: Normal Affect, Appropriate Vital Signs Temp Pulse Resp BP Pulse Ox 36.8 C 106 H 16 96/66 96 10/23/18 10:30 10/23/18 13:29 10/23/18 13:29 10/23/18 13:29 10/23/18 13:29 Oxygen Delivery Method Room Air Weight: 85.8 kg Body Mass Index (BMI) 27.1 Intake and Output for Last 24 Hours 10/21/18 10/22/18 10/23/18 23:59 23:59 23:59 Intake Total 600 / 600 Balance 600 / 600 Laboratory Tests Past 24 Hrs 10/23/18 10/23/18 10/23/18 05:40 05:40 05:40 WBC 10.1 RBC 6.01 Hgb 17.8 H Hct 50.5 MCV 84.0 MCH 29.6 MCHC 35.2 RDW 13.3 RDW Differential 40.9 Plt Count 237 MPV 11.0 Immature Gran % (Auto) 0.100 Neut % (Auto) 61.9 Lymph % (Auto) 26.2 [place] % (Auto) 10.1 H Eos % (Auto) 1.2 Baso % (Auto) 0.5 Absolute Neuts (auto) 6.3 Absolute Lymphs (auto) 2.65 Total Counted Not Reportable Sodium 142 Potassium 3.7 Chloride 104 Carbon Dioxide 30.0 Anion Gap 8 BUN 16 Creatinine 1.02 Estim Creat Clear Calc 81.51 Est GFR (MDRD) Af Amer 96 Est GFR (MDRD) Non-Af 80 BUN/Creatinine Ratio 15.7 Glucose 122 H Calcium 8.9 Troponin I 0.021 TSH 0.79 10/23/18 08:23 WBC RBC Hgb Hct MCV MCH MCHC RDW RDW Differential Plt Count MPV Immature Gran % (Auto) Neut % (Auto) Lymph % (Auto) [place] % (Auto) Eos % (Auto) Baso % (Auto) Absolute Neuts (auto) Absolute Lymphs (auto) Total Counted Sodium Potassium Chloride Carbon Dioxide Anion Gap BUN Creatinine Estim Creat Clear Calc Est GFR (MDRD) Af Amer Est GFR (MDRD) Non-Af BUN/Creatinine Ratio Glucose Calcium Troponin I 0.017 TSH Assessment/Plan Patient seen and examined independently. Data reviewed. I agree with the above note by the nurse practitioner. 1. Atrial fibrillation with RVR * Rate controlled at this time but did receive a one-time dose of IV Cardizem shortly before my evaluation * Continue with carvedilol * Anticoagulated with Eliquis * Possible cardioversion as outpatient * Monitor overnight to ensure stability of his heart rhythm. 2. Chest pain * Stress test negative * Continue with aspirin, Plavix and statin. Code Visit Inpatient E&M: 61380 Subs Hosp L2
--- NOTE | 2018-10-23 15:13 | CM.UR ---
See patient services technician. Met face to face with patient and his . Independent at home prior to admission. No need anticipated at discharge. Discussed eliquis. Placed co-pay coupon on chart for discharge. D/C plan is home with no needs anticipated. Instructed cm will remain available should any needs arise. verb understanding. Katie Liao RN, CCM.
--- NOTE | 2018-10-23 17:21 | NURSING ---
eliquis dose not given at this time due to pt having lovenox this am aprox 0600. spoke with the pharmacist who recomended that the first dose of eliquis be given tonight at 2200.
[2018-10-23] MEDS: traMADol 50 MG Tablet PO (20:27)
[2018-10-23] MEDS: Atorvastatin Calcium 80 MG Tablet PO (22:13)
[2018-10-23] MEDS: APIXABAN 5 MG TABLET PO (22:13)
[2018-10-23] MEDS: Zolpidem Tartrate 5 MG Tablet PO (22:16)
[2018-10-24] VITALS (8 sets, daily range): BP systolic 102–122; BP diastolic 62–80; PULSE 64–110; RESP 14–18; TEMP 36.4–36.6; O2SAT 95–96
[2018-10-24 07:03] LABS: Absolute Neutrophil Count 4.6 X10^3/uL (2.0-7.7); Basophil# 0.03 X10^3/uL; Basophil% 0.4 % (0-1); Eosinophil# 0.12 X10^3/uL; Eosinophils% 1.5 % (0-5); Hematocrit 49.5 % (40-54); Hemoglobin 16.9 g/dl (13.0-16.5); Lymphocyte % 29.8 % (19-41); Mean Corp Hgb Conc 34.1 g/gl (32-36); Mean Corpuscular Hgb 29.3 pg (27.0-32.0); Mean Corpuscular Volume 85.8 fL (80-94); Mean Platelet Vol. 10.5 fl (6.2-12.0); Monocyte# 0.85 X10^3/uL; Monocyte% 10.6 % (0-10); Neutrophil # 4.64 X10^3/uL (2.7-7.7); Neutrophil % 57.6 % (47-70); Platelet Count 170 K/mm3 (150-450); RBC Distribution Width CV 13.3 % (11.6-14.6); RBC Distribution Width SD 41.3 fl (35.1-43.9); Red Blood Count 5.77 M/mm3 (4.6-6.2); White Blood Count 8.1 K/mm3 (4.4-11.0)
[2018-10-24 07:13] LABS: POSITIVE COUNT NO; POSITIVE DIFFERENTIAL NO; POSITIVE MORPHOLOGY NO
[2018-10-24 07:25] LABS: Anion Gap 6 (5-15); BUN 17 mg/dL (7-18); BUN/Creat Ratio 17.3 RATIO (10-20); Calcium,Total 8.5 mg/dL (8.5-10.1); Chloride 106 mmol/L (98-107); Creatinine, Serum 0.98 mg/dL (0.70-1.30); EST Glomerular Filtration Rate 83 mL/min (>60); Est Glom Filt Rate - Afr Amer 101 mL/min (>60); Estimated Creatinine Clearance 84.84 ml/min; Glucose 103 mg/dL (74-106); Potassium 3.9 mmol/L (3.5-5.1); Sodium Level 142 mmol/L (136-145)
[2018-10-24] MEDS: Aspirin 81 MG TAB.CHEW PO (09:43)
[2018-10-24] MEDS: APIXABAN 5 MG TABLET PO (09:43)
[2018-10-24] MEDS: Pantoprazole Sodium 20 MG Tablet PO (09:44)
[2018-10-24] MEDS: Clopidogrel Bisulfate 75 MG Tablet PO (09:44)
--- NOTE | 2018-10-24 10:22 | PCM.PN.CARD ---
Subjectve: Patient doing well this morning, still in atrial fibrillation with RVR. Objective: Vital Signs Temp Pulse Resp BP Pulse Ox 97.6 F L 97 18 102/62 95 10/24/18 09:30 10/24/18 09:30 10/24/18 09:30 10/24/18 09:30 10/24/18 09:30 Oxygen Delivery Method Room Air Weight: 189 lb 2.506 oz Body Mass Index (BMI) 27.1 Intake and Output for Last 24 Hours 10/22/18 10/23/18 10/24/18 23:59 23:59 23:59 Intake Total 1300 / 1300 Output Total 2 / Balance 1298 / 1298 General: Awake, Alert, Oriented x 3 HEENT: PERRL, EOMI, Sclera Non Icteric Neck: Supple, Good ROM, No Lymph Node Enlargement Lungs: Clear to auscultation Cardiovascular: Normal S1, Normal S2, No Murmurs, No Rubs, No Gallops Vascular: No Carotid Bruits, Normal Femoral Pulses, Normal Radial Pulses, Normal Dorsalis Pedal Pulse, Normal Posterior Tibial Pulses Abdomen: Bowel Sounds Present, Soft, Non Tender, No HSM, No Organomegaly Extremities: No Cyanosis, No Clubbing, No edema Neurological: No Focal Motor or Sensory Deficit 10/24/18 05:58: WBC 8.1, RBC 5.77, Hgb 16.9 H, Hct 49.5, MCV 85.8, MCH 29.3, MCHC 34.1, RDW 13.3, RDW Differential 41.3, Plt Count 170, MPV 10.5, Immature Gran % (Auto) 0.100, Neut % (Auto) 57.6, Lymph % (Auto) 29.8, [place] % (Auto) 10.6 H, Eos % (Auto) 1.5, Baso % (Auto) 0.4, Absolute Neuts (auto) 4.6, Total Counted Not Reportable 10/24/18 05:58: Sodium 142, Potassium 3.9, Chloride 106, Carbon Dioxide 30.0, Anion Gap 6, BUN 17, Creatinine 0.98, Est GFR (MDRD) Af Amer 101, Est GFR (MDRD) Non-Af 83, BUN/Creatinine Ratio 17.3, Glucose 103, Calcium 8.5 Rhythm: EKG: ECHO: Stress Test: Cardiac Cath: PCI: CT Surgery: Holter monitor: EPS: PPM: CXR: Chest CT Scan: Medical Necessity - Tobacco Use Smoking Status: Former smoker Tobacco Use: Non-smoker Assessment/Plan 1. Atrial fibrillation: The patient has new onset atrial fibrillation, possibly made worse by excessive caffeine, alcohol, psychosocial stress, and possible undiagnosed obstructive sleep apnea. Patient's troponins were negative x2, and his stress test was negative for inducible ischemia. 2D echo with Doppler shows intact LV function with an EF of 65%, RVSP of 38 mmHg. I recommended that we reinitiate his Coreg however due to his hypertension this was not a good option. He was then switched to Lopressor, and titrating up to 50 mg p.o. twice daily starting today. His heart rate is better controlled with IV Lopressor therapy. Would recommend discontinuation of his Plavix as his stent was several years ago and his stress test is negative and his troponins are negative. We will transition to Eliquis 5 mg p.o. twice daily. Do not recommend repeat catheterization at this time. Advised the patient to discontinue all alcohol, tobacco, and caffeinated beverages in order to hopefully revert him back to normal sinus rhythm. If this does not take place in the next few weeks, we will proceed with DC cardioversion after at least 3 weeks time of Eliquis therapy. If the patient's heart rate still remains elevated tomorrow morning, will consider DREW guided DC cardioversion. Please make patient n.p.o. for possible DREW and DC cardioversion tomorrow morning. In addition I recommend an outpatient sleep study as he most likely has obstructive sleep apnea given his signs and symptoms and atrial fibrillation. 2. Coronary artery disease: No exertional anginal symptoms either prior to or subsequent to his atrial fibrillation. Stress echocardiogram this morning is negative for inducible ischemia with no anginal symptoms. No repeat catheterization recommended at this time. Discontinue Plavix. Continue baby aspirin. 3. Hyperlipidemia: Recommend obtaining a fasting lipid profile. Will make adjustments to his statin based medicines as indicated. His LDL should be less than 70. 4. Thank you very much for the opportunity to participate in the cardiac care of your patient. Patient may be discharged home tomorrow if heart rate is well controlled on Eliquis therapy. Code Visit Inpatient E&M: 83645 Subs Hosp L2
--- NOTE | 2018-10-24 10:23 | PCM.PROGNOTE ---
Patient Problems: Active and Suspected Problems Atrial fibrillation (Acute) Subjective: Patient seen and examined. Complains of headache. Otherwise denies current complaints. Denies shortness of breath, palpitations, chest pain. - Physical Exam General: Alert, Oriented x3, Cooperative HEENT: Atraumatic, PERRLA, EOMI, Normocephalic Neck: Supple, No JVD, Negative Carotid Bruits Lungs: Clear to auscultation, Normal air movement Cardiovascular: - - Atrial fibrillation, intermittent tachycardia. Abdomen: Bowel Sounds Present, Soft, Non Tender, Non-Distended Extremities: No clubbing, No cyanosis, No edema, Capillary Refill Less than 3 Seconds Skin: No rashes, No breakdown Musculoskeletal: No Tenderness to Palpation of Joints or Extremities Neurological: Cranial nerves II-XII grossly intact, Neuro grossly intact Psych/Mental Status: Normal Affect, Appropriate Vital Signs Temp Pulse Resp BP Pulse Ox 97.6 F L 97 18 102/62 95 10/24/18 09:30 10/24/18 09:30 10/24/18 09:30 10/24/18 09:30 10/24/18 09:30 Oxygen Delivery Method Room Air Weight: 189 lb 2.506 oz Body Mass Index (BMI) 27.1 Intake and Output for Last 24 Hours 10/22/18 10/23/18 10/24/18 23:59 23:59 23:59 Intake Total 1300 / 1300 Output Total 2 / 2 Balance 1298 / 1298 Laboratory Tests Past 24 Hrs 10/24/18 10/24/18 05:58 05:58 WBC 8.1 RBC 5.77 Hgb 16.9 H Hct 49.5 MCV 85.8 MCH 29.3 MCHC 34.1 RDW 13.3 RDW Differential 41.3 Plt Count 170 MPV 10.5 Immature Gran % (Auto) 0.100 Neut % (Auto) 57.6 Lymph % (Auto) 29.8 [place] % (Auto) 10.6 H Eos % (Auto) 1.5 Baso % (Auto) 0.4 Absolute Neuts (auto) 4.6 Absolute Lymphs (auto) 2.40 Total Counted Not Reportable Sodium 142 Potassium 3.9 Chloride 106 Carbon Dioxide 30.0 Anion Gap 6 BUN 17 Creatinine 0.98 Estim Creat Clear Calc 84.84 Est GFR (MDRD) Af Amer 101 Est GFR (MDRD) Non-Af 83 BUN/Creatinine Ratio 17.3 Glucose 103 Calcium 8.5 Medical Necessity - Tobacco Use Smoking Status: Former smoker Tobacco Use: Non-smoker Assessment/Plan All Active Problems Unstable angina (Acute) Chest pain (Acute) Atrial fibrillation (Acute) 1. New onset atrial fibrillation with RVR-cardiology following. Echocardiogram with EF 65%, RVSP estimated to be 38 mmHg, mild pulmonary hypertension. TSH within normal limits. Stress echo without evidence of ischemia. Patient started on Eliquis 5 mg twice daily. Possible cardioversion in 3 weeks if patient does not convert. HR remains tachycardic intermittently. Home coreg regimen switched to metoprolol 50mg BID. Continue to monitor. 2. CAD status post stents x2-follows with Dr. Esqueda, [facility] cardiology. EKG without ST-T changes. Troponin negative. Stress echo without evidence of ischemia as noted above. Continue aspirin, statin, Plavix, beta noman. 3. Hypertension-stable. 4. GERD-continue PPI. 5. Anxiety-patient reports he was on benzodiazepines short-term for situational anxiety in the past. Requesting anxiety medication at discharge to get him through the holidays. DVT prophylaxis-Eliquis. This patient was seen by CHIO Da Silva under the supervision of Dr. Zuniga.
[2018-10-24] MEDS: Metoprolol Tartrate 50 MG Tablet PO (10:29)
[2018-10-24] MEDS: traMADol 50 MG Tablet PO (10:31)
--- NOTE | 2018-10-24 14:52 | DCINST_ITS ---
- Discharge Diagnoses Current Active Problems: Current Active and Chronic Problems Atrial fibrillation (Acute) You will use the following diet at home:: Cardiac Discharge Activity: Return to Normal Activity Call your doctor if you observe: Shortness of breath, Dizziness, Fainting spells, Chest pain, Increased palpitations (irregular heartbeat) Additional Instructions: Recommend outpatient sleep study to assess for sleep apnea which can be arranged by primary care physician. Allergies/Adverse Reactions: Allergies amoxicillin [Amoxicillin] Allergy (Verified 12/19/17 10:32) Hives tetracycline [Tetracycline] Allergy (Verified 12/19/17 10:32) Unknown Medications to take at Discharge Nitroglycerin [Nitrostat] 0.4 mg SUBLINGUAL Q5M PRN 11/15/13 Aspirin [Aspirin, Baby] 81 mg PO DAILY@0800 #0 tab.chew 12/13/14 Atorvastatin Calcium [Lipitor] 80 mg PO QHS #0 tablet 12/13/14 L.acidoph,Paracasei, B.lactis [Probiotic] 1 each PO DAILY 10/23/18 Omeprazole [Prilosec] 20 mg PO DAILY 10/23/18 Apixaban [Eliquis] 5 mg PO BID #60 tablet 10/24/18 Metoprolol Tartrate [Lopressor (beta noman)] 50 mg PO BID #60 tablet 10/24/18 traMADol [Ultram] 50 mg PO TID PRN PRN 3 Days #9 tablet 10/24/18 The following prescriptions were given: traMADol [Ultram] 50 mg PO TID PRN PRN 3 Days #9 tablet PRN Reason: Moderate Pain (4-5/10) Apixaban [Eliquis] 5 mg PO BID #60 tablet Metoprolol Tartrate [Lopressor (beta noman)] 50 mg PO BID #60 tablet Primary Care Physician: Sera Ann MD [Primary Care Provider] - Please follow up with your Primary Care Physician in: 1 Week Test Results: Test results from this visit will be discussed in further detail at your follow- up appointment, if applicable. Please Follow Up With: Damon Nagel MD When: 2-3 Weeks Proposed Discharge Date: 10/24/18
--- NOTE | 2018-10-24 14:54 | PCM.DC.SUM ---
<Lisa Parra - Last Filed: 10/24/18 15:02> Discharge Date and Diagnosis - Problem List Patient Problems: Active and Suspected Problems Chest pain (Acute) Atrial fibrillation (Acute) Date of Admission: 10/23/18 Date of Discharge: 10/24/18 - Primary Discharge Diagnosis Active and Suspected Problems 1. New onset atrial fibrillation with RVR 2. CAD status post stents x2 3. Hypertension 4. Hyperlipidemia 5. GERD - Secondary Discharge Diagnosis Chronic Problems Status post insertion of drug-eluting stent into left anterior descending artery for coronary artery disease (Chronic) Coronary artery disease (Chronic) Prediabetes (Chronic) Hypertension (Chronic) Dyslipidemia (Chronic) Hospital Course and Treatment Imaging Results: Diagnostic Data Chest X-Ray 10/23/18 05:46 IMPRESSION: Normal x-ray examination of the chest. No acute findings in the lungs Electronically Signed: Karthik Patrick MD at 6:41 EST Tel , Service support , Dr. Nagel- Cardiology Operations: None Procedures: 2-D Echocardiogram, - - Stress echo Summary of Care Provided: The patient is a 57 year old M admitted 10/23/2018 due to palpitations and chest pressure. 1. New onset atrial fibrillation with RVR-Dr. Nagel, cardiology consulted. Echocardiogram with EF 65%, RVSP estimated to be 38 mmHg, mild pulmonary hypertension. TSH within normal limits. Stress echo without evidence of ischemia. DC on Eliquis 5 mg twice daily. Possible cardioversion in 3 weeks if patient does not convert. Home carvedilol regimen switched to metoprolol 50 mg twice daily. Heart rate is well controlled at discharge. Patient will follow up with Dr. Nagel in 2-3 weeks. 2. CAD status post stents x2-follows with Dr. Esqueda, [facility] cardiology. EKG without ST-T changes. Troponin negative. Stress echo without evidence of ischemia as noted above. Continue aspirin, statin, Plavix, beta noman. Patient plans to follow-up with Dr. Nagel at discharge. 3. Hypertension-stable. 4. GERD-continue PPI. General: Alert, Oriented x3, Cooperative HEENT: Atraumatic, PERRLA, EOMI, Normocephalic Neck: Supple, No JVD, Negative Carotid Bruits Lungs: Clear to auscultation, Normal air movement Cardiovascular: Atrial fibrillation, rate controlled Abdomen: Bowel Sounds Present, Soft, Non Tender, Non-Distended Extremities: No clubbing, No cyanosis, No edema, Capillary Refill Less than 3 Seconds Skin: No rashes, No breakdown Musculoskeletal: No Tenderness to Palpation of Joints or Extremities Neurological: Cranial nerves II-XII grossly intact, Neuro grossly intact Psych/Mental Status: Normal Affect, Appropriate Patient seen and examined prior to discharge. Physical assessment as noted above. Patient is stable for discharge with follow up recommendations as noted above. This patient was seen by CHIO Da Silva under the supervision of Dr. Zuniga. Patient Problems: Active and Suspected Problems Chest pain (Acute) Atrial fibrillation (Acute) - Physical Exam Vital Signs Temp Pulse Resp BP Pulse Ox 97.6 F L 97 18 102/62 95 10/24/18 09:30 10/24/18 10:29 10/24/18 09:30 10/24/18 09:30 10/24/18 09:30 Oxygen Delivery Method Room Air Weight: 189 lb 2.506 oz Body Mass Index (BMI) 27.1 Intake and Output for Last 24 Hours 10/22/18 10/23/18 10/24/18 23:59 23:59 23:59 Intake Total 1300 / 1300 1000 / 1000 Output Total 2 / 2 Balance 1298 / 1298 1000 / 1000 Laboratory Tests Past 24 Hrs 10/24/18 10/24/18 05:58 05:58 WBC 8.1 RBC 5.77 Hgb 16.9 H Hct 49.5 MCV 85.8 MCH 29.3 MCHC 34.1 RDW 13.3 RDW Differential 41.3 Plt Count 170 MPV 10.5 Immature Gran % (Auto) 0.100 Neut % (Auto) 57.6 Lymph % (Auto) 29.8 [place] % (Auto) 10.6 H Eos % (Auto) 1.5 Baso % (Auto) 0.4 Absolute Neuts (auto) 4.6 Absolute Lymphs (auto) 2.40 Total Counted Not Reportable Sodium 142 Potassium 3.9 Chloride 106 Carbon Dioxide 30.0 Anion Gap 6 BUN 17 Creatinine 0.98 Estim Creat Clear Calc 84.84 Est GFR (MDRD) Af Amer 101 Est GFR (MDRD) Non-Af 83 BUN/Creatinine Ratio 17.3 Glucose 103 Calcium 8.5 Discharge Diet: Low fat/ Low Cholesterol Discharge Activity: Return to Normal Activity Call your doctor if you observe: Shortness of breath, Dizziness, Fainting spells, Chest pain, Increased palpitations (irregular heartbeat) Home Medications: Medications to take at Discharge Nitroglycerin [Nitrostat] 0.4 mg SUBLINGUAL Q5M PRN 11/15/13 Aspirin [Aspirin, Baby] 81 mg PO DAILY@0800 #0 tab.chew 12/13/14 Atorvastatin Calcium [Lipitor] 80 mg PO QHS #0 tablet 12/13/14 L.acidoph,Paracasei, B.lactis [Probiotic] 1 each PO DAILY 10/23/18 Omeprazole [Prilosec] 20 mg PO DAILY 10/23/18 Apixaban [Eliquis] 5 mg PO BID #60 tablet 10/24/18 Metoprolol Tartrate [Lopressor (beta noman)] 50 mg PO BID #60 tablet 10/24/18 traMADol [Ultram] 50 mg PO TID PRN PRN 3 Days #9 tablet 10/24/18 Following Prescrptions Were Given to Patient: traMADol [Ultram] 50 mg PO TID PRN PRN 3 Days #9 tablet PRN Reason: Moderate Pain (4-5/10) Apixaban [Eliquis] 5 mg PO BID #60 tablet Metoprolol Tartrate [Lopressor (beta noman)] 50 mg PO BID #60 tablet Primary Care Physician: Sera Ann MD [Primary Care Provider] - Please follow up with your Primary Care Physician in: 1 Week Please Follow Up With: Damon Nagel MD When: 2-3 Weeks Disposition: Home Minutes spent on discharge:: 35 Patient Condition:: Stable Medical Necessity - Tobacco Use Smoking Status: Former smoker Tobacco Use: Non-smoker Meaningful Use Info Meaningful Use Diagnoses (Choose all that apply): None applicable <Woo Zuniga - Last Filed: 10/24/18 15:48> Discharge Date and Diagnosis - Secondary Discharge Diagnosis Chronic Problems Status post insertion of drug-eluting stent into left anterior descending artery for coronary artery disease (Chronic) Coronary artery disease (Chronic) Prediabetes (Chronic) Hypertension (Chronic) Dyslipidemia (Chronic) Hospital Course and Treatment Operations: None Procedures: 2-D Echocardiogram, - Summary of Care Provided: Patient seen and examined independently. Data reviewed. I agree with the above note by the nurse practitioner. The patient is a 57 year old M Vasiliy with palpitations and chest pressure. The ER. Patient was started on IV Lopressor patient was otherwise controlled on metoprolol 50 mg twice daily. Patient be discharged on Eliquis 5 mg twice daily. She will follow-up with cardiology and I will have possible cardioversion in 3weeks given patient's rhythm and symptoms. [] - Physical Exam General: Alert, Cooperative, No apparent distress HEENT: Atraumatic, Normocephalic Oral: Moist Mucosa, No Gingival or Mucosal Lesions/ Ulcerations Lungs: Clear to auscultation, Normal air movement, No rhonchi, No wheeze Cardiovascular: Regular rate, Regular Rhythm, Normal S1, Normal S2, No murmurs Abdomen: Bowel Sounds Present, Soft, Non Tender, Non-Distended, No Hepato-splenomegaly Vital Signs Temp Pulse Resp BP Pulse Ox 36.4 C L 70 18 106/80 96 10/24/18 15:30 10/24/18 15:30 10/24/18 15:30 10/24/18 15:30 10/24/18 15:30 Oxygen Delivery Method Room Air Weight: 85.8 kg Body Mass Index (BMI) 27.1 Intake and Output for Last 24 Hours 10/22/18 10/23/18 10/24/18 23:59 23:59 23:59 Intake Total 1300 / 1300 1000 / 1000 Output Total 2 / 2 Balance 1298 / 1298 1000 / 1000 Laboratory Tests Past 24 Hrs 10/24/18 10/24/18 05:58 05:58 WBC 8.1 RBC 5.77 Hgb 16.9 H Hct 49.5 MCV 85.8 MCH 29.3 MCHC 34.1 RDW 13.3 RDW Differential 41.3 Plt Count 170 MPV 10.5 Immature Gran % (Auto) 0.100 Neut % (Auto) 57.6 Lymph % (Auto) 29.8 [place] % (Auto) 10.6 H Eos % (Auto) 1.5 Baso % (Auto) 0.4 Absolute Neuts (auto) 4.6 Absolute Lymphs (auto) 2.40 Total Counted Not Reportable Sodium 142 Potassium 3.9 Chloride 106 Carbon Dioxide 30.0 Anion Gap 6 BUN 17 Creatinine 0.98 Estim Creat Clear Calc 84.84 Est GFR (MDRD) Af Amer 101 Est GFR (MDRD) Non-Af 83 BUN/Creatinine Ratio 17.3 Glucose 103 Calcium 8.5 Discharge Diet: Low fat/ Low Cholesterol Discharge Activity: Return to Normal Activity Disposition: Home Meaningful Use Info Meaningful Use Diagnoses (Choose all that apply): None applicable Code Visit Inpatient E&M: 41869 Disch Hosp
--- NOTE | 2018-10-24 16:11 | NURSING ---
REVIEWED Caterina ALDANA CHARTING.
== END 2018-10-24 16:15 | disposition home or self-care (01) | DRG 310 ==
LOC: ED 05:52 → PCU 06:45
PROVIDERS: Internal Medicine Cardiovascular Disease; Admitting Provider Student in an Organized Health Care Education/Training Program; Emergency Provider Emergency Medicine; Family Provider Internal Medicine; PCP Internal Medicine
DX: I48.91 Unspecified atrial fibrillation (principal); I25.10 Atherosclerotic heart disease of native coronary artery without angina pectoris; I10 Essential (primary) hypertension; E78.5 Hyperlipidemia, unspecified; R73.03 Prediabetes; Z87.891 Personal history of nicotine dependence; Z95.5 Presence of coronary angioplasty implant and graft; K21.9 Gastro-esophageal reflux disease without esophagitis; Z79.82 Long term (current) use of aspirin; Z79.899 Other long term (current) drug therapy; Z79.01 Long term (current) use of anticoagulants; I27.20 Pulmonary hypertension, unspecified
CPT/HCPCS: 36415; 71045; 80048; 84443; 84484; 85025; 93005; 93017; 93306; 93350; 99283; A4216

== ENCOUNTER → 2020-07-10 12:16 | Outpatient (CLI) | payer OTHER, SELFPAY ==
[2018-10-23 06:59] VITALS: BMI 27.1
--- NOTE | 2020-07-10 12:22 | STEWCON_ITS ---
Reason For Study: CAD Stress Results Protocol: Rafat Protocol WITH DEFINITY Maximum Predicted HR: 160 bpm Target HR: 136 bpm % Maximum Predicted HR: 93 % DurationHeart Rate Stage (mm:ss) (bpm) BP Comment Baseline 78 118/88No Chest Pain; 4 ML Diluted Definity Given Rafat Protocol Stage I 3:00 105 122/74No Chest Pain Rafat Protocol Stage II 3:00 121 130/76No Chest Pain Rafat Protocol Stage III 3:00 134 132/76No Chest Pain Rafat Protocol Stage IV 1:00 148 / No Chest Pain; Mild Dyspnea Recovery 97 126/82No Chest Pain Stress Duration: 10:00 mm:ss Maximum Stress HR: 148 bpm METS: 13 Baseline Echocardiogram Findings Stress Echo Wall motion Data Resting WM Intermediate WM Stress WM Resting Wall Motion Wall Motion Stress All segments Normal. All segments Hyperkinetic. Ejection Fraction 60 %. Ejection Fraction 70 %. Stress Results Heart rate response: Appropriate Blood pressure response: Normal resting blood pressure-appropriate response Arrhythmias: Rare PVC during exercise Functional capacity: Good Stopped secondary to: Dyspnea. EKG Data Baseline ECG: Normal sinus rhythm. Peak exercise ECG: No obvious ECG changes. Symptoms with Stress No complaint of chest discomfort during exercise or recovery. Interpretation Summary 1. Contrast injection performed 2. Negative (adequate) stress echocardiogram Ordering Physician: Kanika Galindo Referring Physician: Fermin Swanson Performed By: Daryn Ordoñez RCS
== END ==
PROVIDERS: PCP Internal Medicine
DX: I25.10 Atherosclerotic heart disease of native coronary artery without angina pectoris (principal)
CPT/HCPCS: 93017; 93350; Q9957; A4216; C8928

== ENCOUNTER 2022-08-11 11:30 | Emergency (ER) | payer OTHER, SELFPAY ==
[2022-08-11 11:31] VITALS: BP 148/98; PULSE 73; RESP 18; TEMP 36.2; O2SAT 100; BMI 26.8
--- NOTE | 2022-08-11 11:50 | EKG12_ITS ---
Test Reason : PAIN Blood Pressure : / mmHG Vent. Rate : 060 BPM Atrial Rate : 060 BPM P-R Int : 148 ms QRS Dur : 084 ms QT Int : 420 ms P-R-T Axes : 049 -18 047 degrees QTc Int : 420 ms Normal sinus rhythm Low voltage QRS Borderline ECG Confirmed by TANESHA HOYOS, CHANNING ([id number]), social media editor LUIS ENRIQUE EARLY ([id number]) on 08/12/2022 9:13:45 AM Referred By: KIRBY Confirmed By:CHANNING ALMENDAREZ MD
--- NOTE | 2022-08-11 12:51 | CT_ITS ---
STUDY: CT ABDOMEN AND PELVIS WITH CONTRAST REASON FOR EXAM: Male, 61 years old. Abdominal Pain, Diarrhea. One week history. RADIATION DOSAGE (If Supplied By Facility): CTDIvol = ( 13.65 ) mGy, DLP = ( 957.63 ) mGycm TECHNIQUE: Transaxial images were obtained from the dome of the diaphragm to the symphysis pubis without oral contrast. IV 100mL Isovue-300 was administered. Sagittal and coronal images were reconstructed. Individualized dose optimization techniques were used for this CT. COMPARISON: None. FINDINGS: Mild degree of bibasilar atelectasis. Coronary artery calcification. There is a 1.5 cm cyst in the posterior dome of the right lobe of the liver. Possible tiny gallstones versus polyps along the dependent portion of the gallbladder lumen. Normal spleen. Normal pancreas. Normal bilateral adrenal glands. Normal right kidney. Normal left kidney. Normal visualized stomach. Normal small intestine. There are multiple colonic diverticula consistent with diverticulosis. The appendix is visualized and appears normal. There is scattered atherosclerotic calcification of the abdominal aorta, without a demonstrated aneurysm. Normal inferior vena cava. Normal retroperitoneum. Normal urinary bladder. The prostate measures 4 cm x 4.5 cm. Small bilateral inguinal hernias containing fat. There are degenerative changes of the visualized lumbar spine. CT/Abdomen/Pelvis W IV Cont ONLY IMPRESSION: Sigmoid diverticulosis. Questionable tiny gallstones or polyps along the dependent portion of the gallbladder lumen. Electronically Signed: Philip Yuan MD at 14:00 EDT ,
--- NOTE | 2022-08-11 12:53 | EDS_ITS ---
HPI HPI - GI History of Present Illness Chief Complaint: Abd Pain Narrative Narrative: Patient with past medical history of coronary artery disease, hypertension, dyslipidemia presents with approximately 1 week of abdominal pain. He states that he has been doing the keto diet for the last month and a half. He started getting GERD symptoms. A few days ago he took a Prilosec which gave him diarrhea. First it was loose then became watery. He denies any nausea or vomiting. No blood in his stool. Went to urgent care today and had diffuse tenderness to his abdomen. He denies any previous abdominal surgeries. He continues to have diarrhea that is nonbloody, and abdominal pain diffusely. No fevers or chills. He denies any chest pain or shortness of breath, but did state that he is having the GERD symptoms with the Prilosec seems to make it worse and is causing him diarrhea. PFSH PFSH Home Medications nitroglycerin 0.4 mg sublingual tablet 0.4 mg sublingual Q5M PRN Chest Pain 11/15/13 [History Last Taken Unknown] aspirin 81 mg chewable tablet 81 mg PO DAILY@0800 ##0 12/13/14 [Rx Last Taken 08/24/15] atorvastatin 80 mg tablet 80 mg PO QHS ##0 12/13/14 [Rx Last Taken Unknown] omeprazole 20 mg capsule,delayed release 20 mg PO DAILY ACID REFLUX 10/23/18 [History Last Taken Unknown] metoprolol tartrate 50 mg tablet 50 mg PO BID ##60 10/24/18 [Rx Last Taken Unknown] clopidogrel 75 mg tablet 75 mg PO DAILY 08/11/22 [History Last Taken Unknown] dicyclomine 20 mg tablet 20 mg PO TID PRN abdominal cramping #20 tabs 08/11/22 [Rx Last Taken Unknown] Allergy/AdvReac Type Severity Reaction Status Date / Time amoxicillin [Amoxicillin] Allergy Hives Verified 08/11/22 11:31 tetracycline [Tetracycline] Allergy Unknown Verified 08/11/22 11:31 Social History Smoking Status: Former smoker ROS ROS ED ROS Narrative Constitutional: No fever, no chills. HEENT: No sore throat. No neck pain. No loss of vision. No rhinorrhea. Cardiovascular: No chest pain. Acid indigestion type symptoms. No palpitations. No pedal edema. Respiratory: No cough, no shortness of breath. Abdominal: Diffuse abdominal pain. No nausea. No vomiting. Nonbloody diarrhea. Genitourinary: No dysuria. No hematuria. Musculoskeletal: No myalgias. No arthralgias. Neurologic: No headaches. No dizziness. No lightheadedness. Skin: No rash. No change in color. Psychiatric: No depression. No anxiety. EXAM Physical Exam Narrative Exam Narrative: Afebrile. Vital signs noted. HEENT: Normocephalic. Atraumatic. PERRL, EOMI. Neck soft and supple. No point tenderness or step off. Cardiovascular: Regular rate and rhythm. No murmurs, rubs, or gallops appreciated. Respiratory: No tachypnea. Lungs clear to auscultation bilaterally. Gastrointestinal: Abdomen soft, minimal diffuse tenderness to palpation with normoactive bowel sounds. No rebound or guarding. Neurological: Awake. Alert. Nonfocal, nonlateralizing. Skin: No rash. Normal color. No pallor. Musculoskeletal: No pedal edema. Full range of motion extremities. Const Vital Signs: 08/11/22 11:31 Temperature 97.2 F L Temperature Source Temporal Pulse Rate 73 Respiratory Rate 18 Blood Pressure 148/98 H Blood Pressure Mean 114 Pulse Ox 100 Oxygen Delivery Method Room Air MDM MDM MDM Narrative Medical decision making narrative: Comprehensive work-up was pursued. He was bolused normal saline 1 L int ravenously. I will obtain a CBC, CMP, urinalysis, and lipase along with CT imaging with IV contrast. CBC is grossly normal except for hemoglobin slightly hemoconcentrated at 16.9, normal platelet count of 183, normal white count of 6.5. CMP is grossly unremarkable, except glucose 112 with a normal anion gap of 6. LFTs are grossly unremarkable, lipase normal at 188. Urine is negative for infection or ketones. CT of the abdomen pelvis shows no acute process. There may be tiny gallstones in the lumen of the gallbladder, but appendix visualized and is normal. At this point in time, repeat examination shows him resting comfortably watching TV. Feel he be discharged safely home with follow-up. He is given a prescription for Bentyl. He will follow-up with his primary care physician. Return instructions were reviewed. Disposition is discharged home in stable condition. Lab Data Attestation: I reviewed the patient's lab results. Labs: Laboratory Results - last 24 hr 08/11/22 08/11/22 08/11/22 13:05 13:05 13:05 WBC 6.5 RBC 5.68 Hgb 16.9 H Hct 50.1 MCV 88.2 MCH 29.8 MCHC 33.7 RDW Std Deviation 42.2 RDW Coeff of Celine 13.1 Plt Count 183 MPV 10.4 Immature Gran % (Auto) 0.200 Neut % (Auto) 76.9 H Lymph % (Auto) 14.4 L [place] % (Auto) 7.1 Eos % (Auto) 0.6 Baso % (Auto) 0.8 Absolute Neuts (auto) 5.0 Absolute Lymphs (auto) 0.93 Nucleated RBC % 0 Sodium 140 Potassium 4.3 Chloride 105 Carbon Dioxide 29.0 Anion Gap 6 BUN 11 Creatinine 0.88 Estim Creat Clear Calc 89.87 Est GFR (MDRD) Af Amer 113 Est GFR (MDRD) Non-Af 93 BUN/Creatinine Ratio 12.5 Glucose 112 H Calcium 9.3 Total Bilirubin 0.60 AST 29 ALT 48 Alkaline Phosphatase 92 Total Protein 7.2 Albumin 3.9 Globulin 3.3 Albumin/Globulin Ratio 1.2 Lipase 188 Urine Color Straw Urine Clarity Clear Urine pH 7.0 Ur Specific [place] 1.010 Urine Protein Negative Urine Glucose (UA) Normal Urine Ketones Negative Urine Occult Blood Negative Urine Nitrite Negative Urine Bilirubin Negative Urine Urobilinogen Normal Ur Leukocyte Esterase Negative Urine RBC 0 SEEN Urine WBC 0 SEEN Ur Squamous Epith Cells 0 SEEN Urine Bacteria 0 SEEN Urine Mucus 0 SEEN Radiography Diagnostic Testing: Clinical Impression(s) from Imaging Studies Abdomen/Pelvis CT 08/11/22 12:51 IMPRESSION: Sigmoid diverticulosis. Questionable tiny gallstones or polyps along the dependent portion of the gallbladder lumen. Electronically Signed: Philip Yuan MD at 14:00 EDT , Discharge Plan Triage Chief Complaint: Abd Pain Other Complaint: Nausea/Vomiting/Diarrhea ED Provider: Chito Grover Dx/Rx/DC Orders Clinical Impression: Diarrhea, Abdominal pain Instructions: ED Diarrhea, Unknown Cause, ED Abdominal Pain Unkn Cause Male... Prescriptions: New dicyclomine 20 mg tablet 20 mg PO TID PRN (Reason: abdominal cramping) Qty: 20 0RF No Action nitroglycerin 0.4 MG tablet 0.4 mg sublingual Q5M PRN (Reason: Chest Pain) Label Comments: CHEST PAIN atorvastatin 80 MG tablet 80 mg PO QHS Qty: 0 0RF aspirin 81 MG tablet,chewable 81 mg PO DAILY@0800 Qty: 0 0RF omeprazole 20 MG capsule 20 mg PO DAILY metoprolol tartrate 50 MG tablet 50 mg PO BID Qty: 60 0RF clopidogrel 75 mg tablet 75 mg PO DAILY Primary Care Provider: Sera Ann Referrals: Sera Ann MD [Primary Care Provider] - 3-5 Days if not improving Disposition Disposition: Home, Self Care
[2022-08-11] MEDS: 0.9% Normal Saline 1,000 ML 1000 ML IV (13:04)
[2022-08-11 13:11] LABS: Bacteria 0 SEEN /hpf (None Seen); Mucous, Urine 0 SEEN /hpf (<or=2+); Red Blood Cells-Urine 0 SEEN /hpf (0-5); Squamous Epithelial Cells - UA 0 SEEN /hpf (0-5); White Blood Cells 0 SEEN /hpf (0-5)
[2022-08-11 13:12] LABS: Absolute Lymphocyte Count 0.93 X10^3/uL (0.83-4.51); Basophil# 0.05 X10^3/uL; Basophil% 0.8 % (0-1); Eosinophil# 0.04 X10^3/uL; Eosinophils% 0.6 % (0-5); Hematocrit 50.1 % (40-54); Hemoglobin 16.9 g/dL (13.0-16.5); Lymphocyte # 0.93 X10^3/ul (0.83-4.51); Lymphocyte % 14.4 % (19-41); Mean Corp Hgb Conc 33.7 g/dL (32-36); Mean Corpuscular Hgb 29.8 pg (27.0-32.0); Mean Corpuscular Volume 88.2 fL (80-94); Mean Platelet Vol. 10.4 fl (6.2-12.0); Monocyte# 0.46 X10^3/uL; Monocyte% 7.1 % (0-10); NRBC Flagged by Analyzer 0 % (0-5); Neutrophil # 4.96 X10^3/uL (2.7-7.7); Neutrophil % 76.9 % (47-70); Platelet Count 183 K/mm3 (150-450); RBC Distribution Width CV 13.1 % (11.6-14.6); RBC Distribution Width SD 42.2 fl (35.1-43.9); Red Blood Count 5.68 M/mm3 (4.6-6.2); White Blood Count 6.5 K/mm3 (4.4-11.0)
[2022-08-11 13:13] LABS: Color, Urine Straw (Yellow); Glucose, Dipstick Normal (Normal); Ketone-Dipstick Negative (Negative); Leukocyte Esterase-Dipstick Negative /ul (Negative); Nitrite-Dipstick Negative (Negative); Occult Blood-Urine Negative /ul (Negative); Protein-Dipstick Negative (Negative); Urine Bilirubin Dipstick Negative (Negative); Urine Clarity Clear (Clear); Urine Urobilinogen Normal (Normal)
[2022-08-11 13:28] LABS: ALB/GLOB Ratio 1.2 RATIO (0.9-2.4); AST(SGOT) 29 U/L (15-37); Alanine Aminotransfer ALT/SGPT 48 U/L (16-61); Albumin, Serum 3.9 g/dL (3.2-5.0); Alkaline Phosphatase 92 U/L (45-117); Anion Gap 6 (5-15); BUN 11 mg/dL (7-18); BUN/Creat Ratio 12.5 RATIO (10-20); Calcium,Total 9.3 mg/dL (8.5-10.1); Chloride 105 mmol/L (98-107); Creatinine, Serum 0.88 mg/dL (0.70-1.30); EST Glomerular Filtration Rate 93 mL/min (>60); Est Glom Filt Rate - Afr Amer 113 mL/min (>60); Estimated Creatinine Clearance 89.87 ml/min; Globulin 3.3 g/dL (2.2-4.2); Glucose 112 mg/dL (74-106); Lipase 188 U/L (73-393); Potassium 4.3 mmol/L (3.5-5.1); Protein, Total 7.2 g/dL (6.4-8.2); Sodium Level 140 mmol/L (136-145)
== END 2022-08-11 14:25 | disposition home or self-care (01) ==
PROVIDERS: Emergency Provider Emergency Medicine; PCP Internal Medicine; Visit Provider Emergency Medicine
DX: R19.7 Diarrhea, unspecified (principal); R10.9 Unspecified abdominal pain; I10 Essential (primary) hypertension; I25.10 Atherosclerotic heart disease of native coronary artery without angina pectoris; E78.5 Hyperlipidemia, unspecified; K21.9 Gastro-esophageal reflux disease without esophagitis; Z79.82 Long term (current) use of aspirin; Z79.899 Other long term (current) drug therapy; Z87.891 Personal history of nicotine dependence
CPT/HCPCS: 74177; 80053; 81001; 83690; 85025; 93005; 96360; 99282; J7030; Q9967; A4216

== ENCOUNTER → 2025-06-21 | Outpatient (CLI) | payer OTHER, SELFPAY ==
--- NOTE | 2025-06-21 16:20 | CT_ITS ---
PROCEDURE: CT ABDOMEN/PELVIS WITH CONTRAST 06/21/2025 REASON FOR EXAM: LLQ PAIN/L FLANK PAIN TECHNIQUE: CT ABDOMEN/PELVIS WITH CONTRAST Coronal and Sagittal reconstruction series were provided. CONTRAST: Isovue 370 VOLUME: 98 mL One or more dose reduction techniques were used (e.g., Automated exposure control, adjustment of the mA and/or kV according to patient size, use of iterative reconstruction technique. RADIATION DOSE SUMMARY: DLP: 1044.82 mGycm COMPARISON: 08/11/2022 FINDINGS: Lung bases: Clear. Coronary artery stents. Liver: Hepatic steatosis. Stable benign-appearing cyst in the posterior right lobe. Gallbladder: Cholelithiasis. No biliary ductal dilatation or findings of acute cholecystitis. Spleen: Normal size and morphology. Pancreas: Within normal limits. Adrenals: Unremarkable. Kidneys: Normal, symmetric enhancement. No urolithiasis or hydroureteronephrosis. Bladder: Unremarkable. Reproductive Organs: Mildly enlarged prostate. Bowel: Oral contrast propagates to the rectosigmoid colon. No bowel obstruction, abnormal wall thickening or active inflammatory process is evident. Normal appendix. Lymph nodes: No enlarged abdominopelvic lymph nodes. Vasculature: Normal caliber abdominal aorta and IVC. Mild atherosclerotic calcifications. Peritoneum / Retroperitoneum: No ascites or free air. Musculoskeletal: Small bilateral fat containing inguinal hernias. Mild multilevel degenerative changes of the visualized spine. CT/Abdomen/Pelvis WITH Contrast IMPRESSION: No acute or active inflammatory intra-abdominal pathology. Reading Location: [id number]
== END | disposition home or self-care (01) ==
PROVIDERS: PCP Internal Medicine; Referring Provider Nurse Practitioner; Visit Provider Nurse Practitioner
DX: R10.32 Left lower quadrant pain (principal); R10.31 Right lower quadrant pain
CPT/HCPCS: 74177; Q9967